=== PATIENT | female | born 1935 | race Caucasian/White ===

== ENCOUNTER 2023-02-11 20:59 | Observation (INO) | payer MEDICARE, SELFPAY ==
[2023-02-12] MEDS: SODIUM CHLORIDE 0.45 % 1,000 ML 75 ML IV (03:23)
--- NOTE | 2023-02-12 03:36 | PC.NURSE ---
Patient up to use restroom. 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 Patient was reoriented to place. Became angry when teletypewriter operator asked her to wait for assistance on getting out of bed. We were able to calm patient and assist with toileting and back to bed.
[2023-02-12 05:36] LABS: Basophils Absolute Auto 0.1 10^3/uL (0.0-0.1); Eosinophils Absolute Auto 0.2 10^3/uL (0.0-0.7); Hemoglobin 11.9 g/dL (12.0-16.0); Immature Granulocytes Abs Auto 0.14 10^3/uL (0.00-0.03); Immature Granulocytes Pct Auto 1.6 % (0.0-0.5); Lymphocytes Absolute Auto 1.9 10^3/uL (1.2-3.8); Lymphocytes Percent Auto 22.4 % (20.5-60.0); Mean Corpuscular Hemoglobin 30.6 pg (26.7-34.0); Mean Platelet Volume 8.3 fL (9.5-13.5); Monocytes Absolute Auto 1.1 10^3/uL (0.3-0.8); Neutrophils Absolute Auto 5.2 10^3/uL (1.4-6.5); Nucleated Red Blood Cells 0; Platelet Count 591 10^3/uL (150-450); Red Blood Count 3.89 10^6/uL (4.20-5.40); Red Cell Distribution Width 12.3 % (11.0-15.0); White Blood Count 8.6 10^3/uL (4.0-11.0)
[2023-02-12 05:57] VITALS: BP 150/63; PULSE 79; RESP 18; TEMP 36.6; O2SAT 95
[2023-02-12 06:00] VITALS: RESP 18
[2023-02-12 06:10] LABS: BUN Creatinine Ratio 13.1; Calcium 8.2 mg/dL (8.5-10.1); Carbon Dioxide 24.9 mmol/L (21.0-32.0); Chloride 100 mmol/L (98-107); Estimated GFR (African America >60 (>=60); Estimated GFR (Non-African Ame >60 (>=60); Glucose 100 mg/dL (74-106); Potassium 3.9 mmol/L (3.5-5.1); Sodium 135 mmol/L (136-145)
[2023-02-12] MEDS: LEVOTHYROXINE SODIUM 88 MCG TABLET PO (06:55)
[2023-02-12] MEDS: ASPIRIN 81 MG TAB.CHEW PO (08:34)
[2023-02-12] MEDS: AMLODIPINE BESYLATE 5 MG TABLET 10 MG PO (08:34)
[2023-02-12] MEDS: METFORMIN HCL 500 MG TAB.ER.24H PO ×2 (08:34→17:31)
[2023-02-12] MEDS: METOPROLOL SUCCINATE 50 MG TAB.ER.24H PO (08:35)
[2023-02-12] MEDS: CLOPIDOGREL BISULFATE 75 MG TABLET PO (08:35)
[2023-02-12] MEDS: LOSARTAN POTASSIUM 50 MG TABLET 100 MG PO (08:35)
[2023-02-12 08:59] VITALS: RESP 18
--- NOTE | 2023-02-12 09:47 | CM.NOTE ---
Rounds made with Dr. Arredondo, awaiting response from [facility] for pt to go skilled at discharge.
--- NOTE | 2023-02-12 09:55 | REH.PTDLY ---
Physical Therapy Daily Note PT Daily Note/Assess Start: 02/12/23 09:40 Freq: Status: Active Protocol: Document 02/12/23 09:40 [facility] (Rec: 02/12/23 09:54 [facility] Desktop) Physical Therapy Daily Note/Assessment Time In 09:25 Time Out 09:40 Pain Level 0 Pain Level 0 Subjective No complaints today. Feeling good. Pt hard of hearing. Therapeutic Exercise Minutes (minutes) 8 Therapeutic Exercise Units 1 Therapeutic Exercise Treatment Instructed in B LE exs with feet elevated in recliner 15x ea with AP, QS, heel slides, abd slides. SLR performed 10x Fredy. Seated LAQ 10x ea. Verbal cues and demo needed for exs, extra cues needed with QS for understanding. Therapeutic Activity Minutes (minutes) 6 Chair Transfer Ability Standby Assistance Therapeutic Activity Comments Pt performs transfers SBA/CGA from chair with pt having good safety awareness to push off from chair. Gait training with RW CGA 118 feet with pt ambulating at slow pace but able to perform safely when using an AD. Total Therapy Minutes 14 Total Physical Therapy Units 1 Daily Note Summary Pt very pleasant individual to work with, but seems a little 'off' today when conversing. Progressed gait distance with AD and reps with exs for improved mobility and strength for when pt returns home. Pt has no complaints during or post rx.
--- NOTE | 2023-02-12 12:03 | P.PN_ITS ---
Progress Note: Subjective Subjective Interval history: patient is a very pleasant 87-year-old female with past medical history of coronary artery disease, hyperlipidemia, hypothyroidism and past CVA who has had a gradual decline over the last several months. She has been having multiple falls while one causing a facial/chin injury. Her house is unsafe for her and she has to walk upstairs to the bedroom. She has also been experiencing some weakness along with her falls. Patient was found to have urinary tract infection in the Emergency Room and was given Rocephin. PT OT also seen patient today and requested long-term facility as patient was very weak on her feet and required full assistance. Patient denies any acute complaints Exam Narrative: Exam Narrative: General: Patient is alert, and not oriented to place or time thinks its 1978 Skin: no visible rashes, or ulcers, bruising to chin Head: atraumatic, acephalic Eyes: PERRLA, no nystagmus present, conjunctiva clear, no scleral icterus Ears: diminished gross auditory acuity Nose: symmetric, no discharge, no maxillary or frontal sinus tenderness Mouth/Throat: no erythema, exudate, or tonsillar enlargement, normal dentition Neck: no masses palpated, normal thyroid, no JVD or audible carotid bruits Heart: Normal rate and rhythm, no murmurs/rubs/gallops Lungs: no audible wheezes, crackles and normal breath sounds all lung mc Abdomen: Normal audible bowel sounds, no distension, No palpable masses, no organomegaly, no rebound/guarding/or rigidity Musculoskeletal: muscle atrophy noted, ROM is limited due to being in hospital bed, no swelling bilateral lower extremities Vascular: Normal carotid, radial, femoral, posterior tibial, and dorsalis pedis pulses Lymph: no supraclavicular, axillary, or anterior/posterior cervical adenopathy Neuro: CN II-X grossly intac Constitutional: Vital Signs, click to edit/add: Vital Signs - 24 hr 02/12/23 06:00 02/12/23 08:59 02/12/23 05:57 Temperature 97.9 F Pulse Rate 79 Respiratory Rate 18 18 18 Blood Pressure [Le ft Arm] 150/63 H Pulse Oximetry 95 Oxygen Delivery Me thod Room Air Progress Note: Objective Labs Labs: Short CBC 02/12/23 Range/Units 05:14 WBC 8.6 (4.0-11.0) 10^3/uL Hgb 11.9 L (12.0-16.0) g/dL Hct 35.0 L (36.0-48.0) % Plt Count 591 H (150-450) 10^3/uL [facility] 02/12/23 05:14 Sodium 135 L Potassium 3.9 Chloride 100 Carbon Dioxide 24.9 BUN 11.0 Creatinine 0.84 Glucose 100 Calcium 8.2 L Progress Note: A&P Assessment and Plan (1) Falls frequently: (2) Weakness generalized: (3) UTI (urinary tract infection): Plan #1 frequent falls/deconditioning/weakness-could be related to an acute urinary tract infection or progressive dementia/small vessel ischemia due to her past CVA. PT OT consult #2 acute urinary tract infection- treat with Rocephin IV #3 coronary artery disease continue statin #4 history of CVA continue aspirin Plavix and statin therapy #5 type 2 diabetes SSI, metformin #6 hypertension continue losartan and metoprolol and amlodipine #7 hypothyroidism-new home levothyroxine Patient is a full code Patient is observation status and is not expected to stay more than two-three days Fall Risk Details Current Medications: Current Medications Acetaminophen (Acetaminophen 325 Mg Tablet) 650 mg PO Q4H PRN PRN Reason: Pain Al Hydrox/Mg Hydrox/Simethicone (Maalox (Mag Hydrox/Aluminum Hyd/Simeth) 30 Ml Oral.Susp) 30 ml PO Q4H PRN PRN Reason: Indigestion Amlodipine Besylate (Amlodipine Besylate 5 Mg Tablet) 10 mg PO QD [facility] Last Admin: 02/12/23 08:34 Dose: 10 mg Aspirin (Aspirin 81 Mg Tab.Chew) 81 mg PO QD [facility] Last Admin: 02/12/23 08:34 Dose: 81 mg Atorvastatin Calcium (Atorvastatin Calcium 10 Mg Tablet) 10 mg PO BEDTIME [facility] Clopidogrel Bisulfate (Clopidogrel Bisulfate 75 Mg Tablet) 75 mg PO QD [facility] Last Admin: 02/12/23 08:35 Dose: 75 mg Ceftriaxone Sodium 2,000 mg/ (Sodium Chloride) 100 mls @ 200 mls/hr IV Q24H [facility] Sodium Chloride (Sodium Chloride 0.45% 1,000 Ml) 1,000 mls @ 75 mls/hr IV .[id number] [facility] Last Admin: 02/12/23 03:23 Dose: 75 mls/hr Levothyroxine Sodium (Levothyroxine Sodium 88 Mcg Tablet) 88 mcg PO ACB [facility] Last Admin: 02/12/23 06:55 Dose: 88 mcg Losartan Potassium (Losartan Potassium 50 Mg Tablet) 100 mg PO QD [facility] Last Admin: 02/12/23 08:35 Dose: 100 mg Metformin HCl (Metformin Hcl 500 Mg Tab.Er.24h) 500 mg PO BIDWM [facility] Last Admin: 02/12/23 08:34 Dose: 500 mg Metoprolol Succinate (Metoprolol Succinate 50 Mg Tab.Er.24h) 50 mg PO QD [facility] Last Admin: 02/12/23 08:35 Dose: 50 mg Omeprazole (Omeprazole 40 Mg Capsule.Dr) 40 mg PO ACB [facility] Last Admin: 02/12/23 06:55 Dose: Not Given Ondansetron HCl (Ondansetron Pf 4 Mg/2 Ml Vial) 4 mg IV Q6H PRN PRN Reason: Nausea Polyethylene Glycol (Polyethylene Glycol 3350 17 Gm Powder Packet) 17 gm PO QD PRN PRN Reason: Constipation Time Spent With Patient Time: Total time spent is greater than 50% in coordination of care (as documented) at patient's floor/unit and/or counseling patient: Time with patient: 25 - 35 minutes
[2023-02-12 14:05] VITALS: BP 108/71; PULSE 78; TEMP 36.7; O2SAT 97
[2023-02-12 14:21] VITALS: RESP 18
--- NOTE | 2023-02-12 15:36 | SWNOTE1 ---
Updates sent to [facility]. Karmen at [facility] submitted them to insurance.
[2023-02-12] MEDS: CEFTRIAXONE 2,000 MG in 0.9 % SODIUM CHLORIDE 100 ML 200 MG IV (17:32)
[2023-02-12 21:36] VITALS: BP 121/70; PULSE 77; RESP 18; TEMP 36.8; O2SAT 93
[2023-02-13] MEDS: ATORVASTATIN CALCIUM 10 MG TABLET PO (02:21)
[2023-02-13 04:58] VITALS: BP 145/78; PULSE 84; RESP 18; TEMP 36.8; O2SAT 94
[2023-02-13] MEDS: LEVOTHYROXINE SODIUM 88 MCG TABLET PO (05:31)
[2023-02-13 05:53] LABS: Basophils Absolute Auto 0.1 10^3/uL (0.0-0.1); Basophils Percent Auto 0.9 % (0.2-2.0); Eosinophils Absolute Auto 0.2 10^3/uL (0.0-0.7); Eosinophils Percent Auto 2.4 % (0.9-7.0); Hematocrit 35.2 % (36.0-48.0); Hemoglobin 11.9 g/dL (12.0-16.0); Immature Granulocytes Abs Auto 0.11 10^3/uL (0.00-0.03); Immature Granulocytes Pct Auto 1.6 % (0.0-0.5); Lymphocytes Absolute Auto 1.9 10^3/uL (1.2-3.8); Lymphocytes Percent Auto 28.7 % (20.5-60.0); Mean Corpuscular HGB Conc 33.8 g/dL (29.9-35.2); Mean Corpuscular Hemoglobin 30.6 pg (26.7-34.0); Mean Corpuscular Volume 90.5 fL (81.0-99.0); Mean Platelet Volume 8.5 fL (9.5-13.5); Monocytes Absolute Auto 0.8 10^3/uL (0.3-0.8); Monocytes Percent Auto 11.6 % (1.7-12.0); Neutrophils Absolute Auto 3.7 10^3/uL (1.4-6.5); Neutrophils Percent Auto 54.8 % (43.0-75.0); Nucleated Red Blood Cells 0; Platelet Count 647 10^3/uL (150-450); Red Blood Count 3.89 10^6/uL (4.20-5.40); Red Cell Distribution Width 12.5 % (11.0-15.0); White Blood Count 6.7 10^3/uL (4.0-11.0)
[2023-02-13 07:24] LABS: Alanine Aminotransferase 16 U/L (14-59); Albumin Globulin Ratio 0.7; Albumin Level 2.5 g/dL (3.4-5.0); Alkaline Phosphatase 62 U/L (46-116); Anion Gap 13.6; Aspartate Amino Transferase 16 U/L (15-37); BUN Creatinine Ratio 7.2; Bilirubin Total 0.3 mg/dL (0.2-1.0); Calcium 8.5 mg/dL (8.5-10.1); Carbon Dioxide 25.3 mmol/L (21.0-32.0); Chloride 101 mmol/L (98-107); Estimated GFR (African America >60 (>=60); Estimated GFR (Non-African Ame >60 (>=60); Globulin 3.7 g/dL; Glucose 103 mg/dL (74-106); Potassium 3.9 mmol/L (3.5-5.1); Sodium 136 mmol/L (136-145); Total Protein 6.2 g/dL (6.4-8.2)
[2023-02-13] MEDS: METFORMIN HCL 500 MG TAB.ER.24H PO (09:13)
[2023-02-13] MEDS: ASPIRIN 81 MG TAB.CHEW PO (09:14)
[2023-02-13] MEDS: CLOPIDOGREL BISULFATE 75 MG TABLET PO (09:15)
[2023-02-13] MEDS: AMLODIPINE BESYLATE 5 MG TABLET 10 MG PO (09:15)
[2023-02-13] MEDS: METOPROLOL SUCCINATE 50 MG TAB.ER.24H PO (09:16)
[2023-02-13] MEDS: LOSARTAN POTASSIUM 50 MG TABLET 100 MG PO (09:16)
--- NOTE | 2023-02-13 11:07 | PT.DAILY ---
Physical Therapy Daily Note PT Daily Note/Assess Start: 02/12/23 09:40 Freq: Status: Active Protocol: Document 02/13/23 11:01 [facility] (Rec: 02/13/23 11:07 [facility] Desktop) Physical Therapy Daily Note/Assessment Time In/Time Out Time In 10:25 Time Out 10:45 Pain In Pain N/A Pain Out Pain N/A Subjective Subjective Pt sitting in BS chair upon arrival. Reports she is tired this morning but knows she needs to get up and move. Therapeutic Exercise Time Therapeutic Exercise Minutes (minutes) 5 Therapeutic Exercise Units 0 Therapeutic Exercise Treatment Therapeutic Exercise Treatment Seated ex complete in BS chair while sitting on edge without back supported. Therapeutic Activity Time Therapeutic Activity Minutes (minutes) 13 Therapeutic Activity Units 1 Therapeutic Activity Treatment Chair Transfer Ability Standby Assistance Therapeutic Activity Comments Pt sit>stand SBA. Amb with RW 100'x3 with slow edwige and standing rest breaks taken. Total Physical Therapy Time Total Therapy Minutes 18 Total Physical Therapy Units 1 Summary Daily Note Summary Improved gait endurance but does requires rest breaks and increased time due to slow edwige.
--- NOTE | 2023-02-13 12:00 | CM.NOTE ---
2nd Notice of Medicare Outpatient Observation notice discussed with pt, denies questions.
--- NOTE | 2023-02-13 12:02 | SWNOTE1 ---
WALT received call from pt's insurance and they are requesting a peer to peer for pt to go to snf. WALT wrote down the information and it was sent to Dr. Arredondo. Peer to peer must be completed by 2:40 pm today. WALT also received call from [facility] letting WALT know about peer to peer.
--- NOTE | 2023-02-13 14:04 | SWNOTE1 ---
SW spoke with doctor and peer to peer was completed. Insurance said they have 24 hours to determine their decision. SW notified Alycia at [facility] and requested SW be notified either way over the weekend. SW left cell phone number with [facility]. SW to update family and nursing. SW also to leave packet on floor in case of approval. SW completed HENS as well.
--- NOTE | 2023-02-13 14:32 | PM.DS1 ---
DS: Providers Provider Date of admission: 02/11/23 20:59 Primary care physician: LANRE STANLEY DS: Diagnosis Discharge Diagnosis (1) Falls frequently: (2) Weakness generalized: (3) UTI (urinary tract infection): DS: Summary Hospital Course Hospital Course: #1 frequent falls/deconditioning/weakness-could be related to an acute urinary tract infection or progressive dementia/small vessel ischemia due to her past CVA. PT OT consult, did not qualify for skilled at this time after doing a peer to peer with insurance. She will go home with home PT/OT #2 acute urinary tract infection-? treat with Rocephin IV, outpatient cipro PO BID x 7 days #3 coronary artery disease continue? statin #4 history of CVA continue aspirin Plavix and statin therapy #5 type 2 diabetes SSI, metformin #6 hypertension continue losartan and metoprolol and amlodipine #7 hypothyroidism- home levothyroxine Status at Discharge Functional status at discharge: uses cane/walker Time Spent with Patient Time attestation: Total time spent providing and/or coordinating discharge services: Exam Narrative: Exam Narrative: General: Patient is alert, and not oriented to place or time thinks its 1978 Skin: no visible rashes, or ulcers, bruising to chin Head: atraumatic, acephalic Eyes: PERRLA, no nystagmus present, conjunctiva clear, no scleral icterus Ears: diminished gross auditory acuity Nose: symmetric, no discharge, no maxillary or frontal sinus tenderness Mouth/Throat: no erythema, exudate, or tonsillar enlargement, normal dentition Neck: no masses palpated, normal thyroid, no JVD or audible carotid bruits Heart: Normal rate and rhythm, no murmurs/rubs/gallops Lungs: no audible wheezes, crackles and normal breath sounds all lung mc Abdomen: Normal audible bowel sounds, no distension, No palpable masses, no organomegaly, no rebound/guarding/or rigidity Musculoskeletal: muscle atrophy noted, ROM is limited due to being in hospital bed, no swelling bilateral lower extremities Vascular: Normal carotid, radial, femoral, posterior tibial, and dorsalis pedis pulses Lymph: no supraclavicular, axillary, or anterior/posterior cervical adenopathy Neuro: CN II-X grossly intact Constitutional: Vital Signs, click to edit/add: Vital Signs - 24 hr 02/12/23 21:36 02/13/23 04:58 Temperature 98.2 F 98.2 F Pulse Rate 77 84 Respiratory Rate 18 18 Blood Pressure [Le ft Arm] 121/70 H 145/78 H Pulse Oximetry 93 L 94 L Oxygen Delivery Me thod Room Air Room Air DS: Data Data Completed and Pending Labs on day of discharge: Labs from last 24 hours 02/13/23 04:43 WBC 6.7 RBC 3.89 L Hgb 11.9 L Hct 35.2 L MCV 90.5 MCH 30.6 MCHC 33.8 RDW 12.5 Plt Count 647 H MPV 8.5 L Neut % (Auto) 54.8 Lymph % (Auto) 28.7 [place] % (Auto) 11.6 Eos % (Auto) 2.4 Baso % (Auto) 0.9 Neut # (Auto) 3.7 Lymph # (Auto) 1.9 [place] # (Auto) 0.8 Eos # (Auto) 0.2 Baso # (Auto) 0.1 Nucleated RBCs 0 Sodium 136 Potassium 3.9 Chloride 101 Carbon Dioxide 25.3 Anion Gap 13.6 BUN 6.0 L Creatinine 0.83 Est GFR ( Amer) >60 Est GFR (Non-Af Amer) >60 BUN/Creatinine Ratio 7.2 Glucose 103 Calcium 8.5 Total Bilirubin 0.3 AST 16 ALT 16 Total Protein 6.2 L Albumin 2.5 L Globulin 3.7 Albumin/Globulin Ratio 0.7 Discharge Plan Discharge Disposition: Home Health Service Discharge Medications: New ciprofloxacin HCl 500 mg tablet 500 mg PO BID 7 Days Qty: 14 0RF Continued amlodipine 10 mg tablet 10 mg PO .daily atorvastatin 10 mg tablet 10 mg PO .every evening aspirin 81 mg tablet,chewable 81 mg PO QDAY losartan 100 mg tablet 100 mg PO .everyday at bedtime metformin 500 mg tablet extended release 24 hr 500 mg PO BID metoprolol succinate 50 mg tablet extended release 24 hr 50 mg PO QDAY Activity: ambulate only with your walker Activity Detail: home health with home PT/OT Diet: advance to your usual diet Forms: Portal Instructions
[2023-02-13 14:35] VITALS: BP 159/73; PULSE 90; RESP 18; TEMP 36.3; O2SAT 93
--- NOTE | 2023-02-13 14:43 | SWNOTE1 ---
WALT spoke with doctor and received call from insurance that pt is denied for skilled care and does not qualify. Pt is medically stable for discharge. WALT called and spoke with pt's son, Travon. Travon would like set up and would like to use [facility]. WALT sent referral. Travon will get ahold of one of his sisters to pick pt up today as he is working. WALT asked permission to call Araceli as well. WALT called and spoke with Araceli, daughter, and she voiced understanding. WALT updated nursing.
--- NOTE | 2023-02-13 15:40 | SWNOTE1 ---
WALT called and spoke with Aletha at [facility] and they have received referral and do not see any issues. Start of care will not be until early next week, family is aware. Pt is discharging home with [facility]. DC orders were sent to [facility].
== END 2023-02-13 15:33 | disposition home health service (06) ==
PROVIDERS: Admitting Provider Family Medicine; PCP Family Medicine; Visit Provider Internal Medicine
DX: N39.0 Urinary tract infection, site not specified (principal); I25.10 Atherosclerotic heart disease of native coronary artery without angina pectoris; E11.9 Type 2 diabetes mellitus without complications; I10 Essential (primary) hypertension; E03.9 Hypothyroidism, unspecified; E78.5 Hyperlipidemia, unspecified; R53.1 Weakness; Z79.890 Hormone replacement therapy; R29.6 Repeated falls; Z86.73 Personal history of transient ischemic attack (TIA), and cerebral infarction without residual deficits; Z79.84 Long term (current) use of oral hypoglycemic drugs; Z79.82 Long term (current) use of aspirin; Z79.02 Long term (current) use of antithrombotics/antiplatelets
CPT/HCPCS: 36415; 71045; 80048; 80053; 81003; 81015; 84484; 85025; 87040; 87086; 87635; 87811; 93005; 96365; 96366; 96376; 97110; 97161; 97165; 97530; 97535; 99285; G0378; Q3014; U0003

== ENCOUNTER 2023-02-26 11:28 | Observation (INO) | payer MEDICARE, SELFPAY ==
[2023-02-26] VITALS (8 sets, daily range): BP systolic 99–186; BP diastolic 63–101; PULSE 66–92; RESP 14–27; TEMP 36.4–36.7; O2SAT 93–99; BMI 19.5; BMI 20.2
--- NOTE | 2023-02-26 11:33 | ED_ITS ---
HPI - General Adult General Chief complaint: Weakness Stated complaint: GENERAL WEAKNESS Time Seen by Provider: 02/26/23 11:33 History of Present Illness HPI narrative: Patient presents to emergency department via EMS with a complaint of nausea and vomiting. Patient states she feels very weak has nausea and abdominal pain. She was recently hospitalized and discharged on Cipro for a urinary tract infection. That was 2 weeks ago the Cipro was prescribed for 7 days and the patient still has one and the pill box. She denies any diarrhea, constipation. Son who lives with him patient states she has not improved much since she left the hospital. She denies any trauma. She denies any chest pain, shortness of breath. She denies any fever, or chills, or cough.Patient has had frequent falls in the last month. She was seen and evaluated by PTOT during the last admission. Family ended up taking her home however does state the patient has not improved in the minimal and although she is having outpatient rehab with home health and that has not helped. Related Data Home Medications Medication Instructions Recorded Confirmed amlodipine 10 mg tablet 10 mg PO .daily 02/12/23 02/26/23 aspirin 81 mg chewable tablet 81 mg PO QDAY 02/12/23 02/26/23 atorvastatin 10 mg tablet 10 mg PO .every evening 02/12/23 02/26/23 losartan 100 mg tablet 100 mg PO .everyday at bedtime 02/12/23 02/12/23 metformin 500 mg tablet,extended 500 mg PO BID 02/12/23 02/26/23 release 24 hr metoprolol succinate 50 mg 50 mg PO QDAY 02/12/23 02/26/23 tablet,extended release 24 hr donepezil 5 mg tablet 5 mg PO DAILY 02/26/23 02/26/23 magnesium oxide 400 mg (241.3 mg 400 mg PO DAILY 02/26/23 02/26/23 magnesium) tablet Previous Rx's Medication Instructions Recorded ciprofloxacin HCl 500 mg tablet 500 mg PO BID 7 days #14 tabs 02/13/23 Allergies Allergy/AdvReac Type Severity Reaction Status Date / Time Sulfa (Sulfonamide Allergy Verified 02/11/23 19:37 Antibiotics) Review of Systems ROS Status of ROS 10 or more systems reviewed and unremarkable except as noted in history and below [facility] Medical History (Updated 02/26/23 @ 14:41 by Doris Nicolas MD) Social History Smoking status: Former smoker Exam Narrative Exam Narrative: Nurses notes and vital signs reviewed and patient is not hypoxic. General: Nontoxic, Well-appearing and in no apparent distress. Skin: Warm, dry, no pallor noted. No Rash Head: Normocephalic, atraumatic. Neck: Supple, non-tender. Eye: Pupils are equal, round and EOMI. No scleral icterus. Ears, Nose, Mouth, and Throat: TM clear, no posterior oropharynx erythema or nasal mucosal hypertrophy, uvula is mid-line Oral mucosa is dry Cardiovascular: Regular Rate and Rhythm without murmur, gallop or rub. Respiratory: No accessory muscle use or respiratory distress. Lungs are clear to auscultation, no wheezing, rales or rhonchi Chest Wall: no tenderness Back: No midline thoracic or lumbar vertebral tenderness. No CVA tenderness Musculoskeletal: normal ROM, no calf or popliteal tenderness, no lower extremity edema/swelling GI: Abdomen is soft, non-distended. Normal bowel sounds. No masses appreciated. No tenderness to palpation. No rebound, guarding, or rigidity noted. Neurological: A&O x4. No cranial nerve dysfunction observed. No truncal ataxia. Moves all extremities. Sensation intact. Psychiatric: Cooperative and interactive. Normal mood and affect. Constitutional Vital Signs - 24 hr 02/26/23 11:36 02/26/23 11:58 02/26/23 11:35 Temperature 98.1 F Pulse Rate 90 Pulse Rate [Monitor] 90 Respiratory Rate 14 20 Blood Pressure Blood Pressure [Right Arm] 149/101 H Pulse Oximetry 99 97 96 Oxygen Delivery Method Room Air Room Air 02/26/23 11:36 02/26/23 11:36 02/26/23 13:33 Temperature Pulse Rate 88 92 H 79 Pulse Rate [Monitor] Respiratory Rate 24 27 H 21 Blood Pressure 149/101 H 99/75 Blood Pressure [Right Arm] Pulse Oximetry 95 93 L Oxygen Delivery Method 02/26/23 14:01 02/26/23 14:01 Temperature Pulse Rate 68 70 Pulse Rate [Monitor] Respiratory Rate 15 14 Blood Pressure 155/68 H 155/68 H Blood Pressure [Right Arm] Pulse Oximetry 93 L 93 L Oxygen Delivery Method Course Vital Signs Vital signs: Vital Signs Pulse Rate 90 02/26/23 11:35 Respiratory Rate 20 02/26/23 11:35 Pulse Oximetry 96 02/26/23 11:35 Temperature 98.1 F 02/26/23 11:36 Pulse Rate 70 02/26/23 14:01 Respiratory Rate 14 02/26/23 14:01 Blood Pressure 155/68 H 02/26/23 14:01 Pulse Oximetry 93 L 02/26/23 14:01 Oxygen Delivery Method Room Air 02/26/23 11:58 Medical Decision Making MDM Narrative Medical decision making narrative: Patient was given IV fluids. 2 g of magnesium were ordered. Patient continues to have urinary frequency. All results were discussed with patient and family. Family states that the patient is not able to care for herself she is weak she continues to have frequent falls. The patient was discussed with Sylvia from [employer] who advised at this point it became obs the patient to have them. Patient was discussed with Dr. reinier almazan who has accepted the patient. Medical Records Medical records reviewed: Yes I reviewed the patient's medical records Lab Data Lab results reviewed: Yes I reviewed the patient's lab results Labs: Lab Results 02/26/23 Range/Units 11:43 WBC 5.8 (4.0-11.0) 10^3/uL RBC 4.50 (4.20-5.40) 10^6/uL Hgb 14.0 (12.0-16.0) g/dL Hct 40.8 (36.0-48.0) % MCV 90.7 (81.0-99.0) fL MCH 31.1 (26.7-34.0) pg MCHC 34.3 (29.9-35.2) g/dL RDW 13.2 (11.0-15.0) % Plt Count 782 H (150-450) 10^3/uL MPV 8.1 L (9.5-13.5) fL Neut % (Auto) 59.4 (43.0-75.0) % Lymph % (Auto) 24.9 (20.5-60.0) % [place] % (Auto) 12.1 H (1.7-12.0) % Eos % (Auto) 1.9 (0.9-7.0) % Baso % (Auto) 1.4 (0.2-2.0) % Neut # (Auto) 3.4 (1.4-6.5) 10^3/uL Lymph # (Auto) 1.4 (1.2-3.8) 10^3/uL [place] # (Auto) 0.7 (0.3-0.8) 10^3/uL Eos # (Auto) 0.1 (0.0-0.7) 10^3/uL Baso # (Auto) 0.1 (0.0-0.1) 10^3/uL Abs Immat Gran (auto) 0.02 (0.00-0.03) 10^3/uL Imm/Tot Granulo (auto) 0.3 (0.0-0.5) % Sodium 133 L (136-145) mmol/L Potassium 4.2 (3.5-5.1) mmol/L Chloride 98 (98-107) mmol/L Carbon Dioxide 25.2 (21.0-32.0) mmol/L Anion Gap 14.0 BUN 16.0 (7.0-18.0) mg/dL Creatinine 0.86 (0.55-1.02) mg/dL Est GFR ( Amer) >60 (>=60) Est GFR (Non-Af Amer) >60 (>=60) BUN/Creatinine Ratio 18.6 Glucose 110 H (74-106) mg/dL Lactate 2.1 H (0.4-2.0) mmol/L Calcium 9.1 (8.5-10.1) mg/dL Magnesium 1.6 L (1.8-2.4) mg/dL Total Bilirubin 1.1 H (0.2-1.0) mg/dL AST 23 (15-37) U/L ALT 23 (14-59) U/L Alkaline Phosphatase 66 (46-116) U/L Total Creatine Kinase 60 (26-192) U/L CK-MB (CK-2) 0.90 (<=3.60) ng/mL Myoglobin 38 (9-82) ng/mL Troponin I High Sens 8.8 (4.0-51.3) pg/mL NT-Pro-B Natriuret Pep 160.0 (<=1800.0) pg/mL Total Protein 7.5 (6.4-8.2) g/dL Albumin 3.6 (3.4-5.0) g/dL Globulin 3.9 g/dL Albumin/Globulin Ratio 0.9 Lipase 85.0 (73.0-393.0) U/L Urine Color Lt. yellow (YELLOW) Urine Clarity Clear (CLEAR) Urine pH 5.5 (5.0-9.0) Ur Specific [place] 1.010 (1.005-1.025) Urine Protein Negative (NEG/TRACE) mg/dL Urine Glucose (UA) Negative (NEGATIVE) mg/dL Urine Ketones Negative (NEGATIVE) mg/dL Urine Occult Blood Negative (NEGATIVE) Urine Nitrite Negative (NEGATIVE) Urine Bilirubin Negative (NEGATIVE) Urine Urobilinogen 0.2 (0.2-1.0) EU/dL Ur Leukocyte Esterase Negative (NEGATIVE) Discharge Plan Discharge Chief Complaint: Weakness Clinical Impression: Elevated lactic acid level, Hypomagnesemia Patient Disposition: Admitted as Observation Time of Disposition Decision: 14:41 Condition: Good
--- NOTE | 2023-02-26 11:42 | ECG_ITS ---
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
--- NOTE | 2023-02-26 11:42 | CT_ITS ---
The [address] [address] Patient Name: PRIYA MOON MRN: [id number] date: 1935 Sex: F Assigned Patient Location: ER Current Patient Location: ER Accession/Order Number: [id number] Exam Date: 02/26/2023 13:00 Report Date: 02/26/2023 13:47 At the request of: TRI HERNÁNDEZ Procedure: CT abdomen pelvis w con EXAM: CT abdomen pelvis w con HISTORY: abd pain, n/v COMPARISON: CT abdomen and pelvis 09/06/2022. TECHNIQUE: Following the intravenous injection of contrast, axial soft tissue windows of the abdomen and pelvis were performed with coronal and sagittal reformats. CT dose reduction technique was used including Automated Exposure Control. Findings: Coronary artery calcifications. Small hiatal hernia. Minimal bilateral lower lung atelectasis. ABDOMEN: The liver, gallbladder, pancreas, and adrenal glands are unremarkable. Redemonstrated is an atrophic cyst seen. Minimal nonspecific bilateral perinephric fat stranding. Bilateral renal low-attenuation lesions, too small to characterize. No renal stones or collecting system dilatation. Redemonstrated are small bilateral extrarenal pelvises. The bilateral ureters are nondilated. Evaluation of the bowel is limited given the absence of oral contrast. No bowel obstruction. The appendix is not definitely identified. The aorta is normal caliber. Moderate to severe atherosclerotic disease. No enlarged abdominal lymph nodes or free abdominal fluid. Pelvis: Unremarkable bladder. The uterus is present and unremarkable within the limits of CT. No enlarged pelvic lymph nodes or free pelvic fluid. No aggressive sclerotic or lytic osseous lesions. Old L1 inferior endplate compression deformity. Mild dextroconvex scoliosis of the lumbar spine. Stable grade 1 anterolisthesis of L4 on L5. Regions of moderate to severe multilevel degenerative spondylosis. IMPRESSION: 1. No acute abdominal or pelvic abnormality. 2. Other nonemergent findings, as described above. Electronically authenticated by: KRISTY LEE Date: 02/26/2023 13:47
--- NOTE | 2023-02-26 11:42 | XR_ITS ---
The [address] [address] Patient Name: PRIYA MOON MRN: [id number] date: 1935 Sex: F Assigned Patient Location: ER Current Patient Location: ER Accession/Order Number: [id number] Exam Date: 02/26/2023 13:00 Report Date: 02/26/2023 14:11 At the request of: TRI HERNÁNDEZ Procedure: XR chest 1V EXAM: XR chest 1V at 1305 hours HISTORY: weakness COMPARISON: 02/10/2023 TECHNIQUE: AP upright portable chest x-ray FINDINGS: The heart is not enlarged and the vasculature is not distended. There is been interval clearing of the lung bases. No acute infiltrate, effusion or pneumothorax is identified. The osseous structures are grossly intact IMPRESSION: No acute infiltrate or evidence of cardiac decompensation. Electronically authenticated by: NESSA GONSALVES Date: 02/26/2023 14:11
[2023-02-26 12:10] LABS: Basophils Absolute Auto 0.1 10^3/uL (0.0-0.1); Basophils Percent Auto 1.4 % (0.2-2.0); Eosinophils Absolute Auto 0.1 10^3/uL (0.0-0.7); Eosinophils Percent Auto 1.9 % (0.9-7.0); Hematocrit 40.8 % (36.0-48.0); Immature Granulocytes Abs Auto 0.02 10^3/uL (0.00-0.03); Immature Granulocytes Pct Auto 0.3 % (0.0-0.5); Lymphocytes Absolute Auto 1.4 10^3/uL (1.2-3.8); Lymphocytes Percent Auto 24.9 % (20.5-60.0); Mean Corpuscular HGB Conc 34.3 g/dL (29.9-35.2); Mean Corpuscular Hemoglobin 31.1 pg (26.7-34.0); Mean Corpuscular Volume 90.7 fL (81.0-99.0); Mean Platelet Volume 8.1 fL (9.5-13.5); Monocytes Absolute Auto 0.7 10^3/uL (0.3-0.8); Monocytes Percent Auto 12.1 % (1.7-12.0); Neutrophils Absolute Auto 3.4 10^3/uL (1.4-6.5); Neutrophils Percent Auto 59.4 % (43.0-75.0); Platelet Count 782 10^3/uL (150-450); Red Cell Distribution Width 13.2 % (11.0-15.0); White Blood Count 5.8 10^3/uL (4.0-11.0)
[2023-02-26] MEDS: 0.9 % SODIUM CHLORIDE 1,000 ML 999 ML IV (12:12)
[2023-02-26] MEDS: ONDANSETRON PF 4 MG/2 ML VIAL IV (12:13)
[2023-02-26 12:31] LABS: Lactate/Lactic Acid 2.1 mmol/L (0.4-2.0)
[2023-02-26 12:32] LABS: Bilirubin Urine NEGATIVE (NEGATIVE); Blood Urine NEGATIVE (NEGATIVE); Clarity Urine CLEAR (CLEAR); Color Urine LT. YELLOW (YELLOW); Glucose Urine UA NEGATIVE (NEGATIVE); Ketones Urine NEGATIVE (NEGATIVE); Leukocyte Esterase Urine NEGATIVE (NEGATIVE); Nitrite Urine NEGATIVE (NEGATIVE); Protein Urine NEGATIVE (NEG/TRACE); Urobilinogen Urine 0.2 EU/dL (0.2-1.0); pH Urine 5.5 (5.0-9.0)
[2023-02-26 12:33] LABS: Urine Microscopic Indicated NO
[2023-02-26 12:39] LABS: Alanine Aminotransferase 23 U/L (14-59); Albumin Globulin Ratio 0.9; Albumin Level 3.6 g/dL (3.4-5.0); Alkaline Phosphatase 66 U/L (46-116); Aspartate Amino Transferase 23 U/L (15-37); BUN Creatinine Ratio 18.6; Bilirubin Total 1.1 mg/dL (0.2-1.0); Calcium 9.1 mg/dL (8.5-10.1); Carbon Dioxide 25.2 mmol/L (21.0-32.0); Chloride 98 mmol/L (98-107); Estimated GFR (African America >60 (>=60); Estimated GFR (Non-African Ame >60 (>=60); Globulin 3.9 g/dL; Glucose 110 mg/dL (74-106); Potassium 4.2 mmol/L (3.5-5.1); Sodium 133 mmol/L (136-145); Total Protein 7.5 g/dL (6.4-8.2)
[2023-02-26 12:43] LABS: Creatine Kinase 60 U/L (26-192); Magnesium 1.6 mg/dL (1.8-2.4); Myoglobin 38 ng/mL (9-82); Troponin I High Sensitivity 8.8 pg/mL (4.0-51.3)
[2023-02-26] MEDS: MAGNESIUM SULFATE 2 GM in 0.9 % SODIUM CHLORIDE 100 ML IV (14:00)
--- NOTE | 2023-02-26 14:21 | SWNOTE1 ---
WALT spoke with ER physician, pt in for weakness and falls. Physician inquiring about SNF. Pt was here 2 weeks ago and we attempted to get her to SNF, but her insurance denied. Hospitalist completed peer to peer and insurance still denied. WALT let ER physician know and pt does want SNF, pt would need to come to floor and we can try again. Unsure of pt has a diagnosis to be admitted or not. It is all determined by her insurance. Pt is at home with services. The only other option for skilled would be private pay.
--- NOTE | 2023-02-26 15:48 | SWNOTE1 ---
SW stopped in to speak with pt. Pt was admitted to floor. Pt is at home with her son. Pt denies having any falls at home and stated she came in because she was having trouble breathing, Pt resting in bed, comfortable, no oxygen. Pt stated she uses her cane at home, has a walker, but uses cane. SW asked about HH coming in and she stated they have not been in yet. Pt was aware that she was at [facility], knew the year, thought it was Thursday and that Deidre was President. Pt was able to tell SW all her kids names. SW to check on HH company and pt gave permission for SW to call her son. SW called and left message for pt's son. SW spoke with nursing and pt is already getting up on her own and using the restroom.
[2023-02-26 16:41] LABS: Glucometer 116 mg/dL (74-106)
[2023-02-26 21:10] LABS: Glucometer 176 mg/dL (74-106)
[2023-02-26] MEDS: INSULIN ASPART 300 UNIT/3 ML PEN SUBQ (22:57)
[2023-02-26] MEDS: ENOXAPARIN SODIUM 40 MG/0.4 ML SYRINGE SUBQ (22:57)
[2023-02-27 06:00] VITALS: PULSE 66; RESP 18; TEMP 36.4; O2SAT 93
[2023-02-27 07:12] LABS: Basophils Absolute Auto 0.1 10^3/uL (0.0-0.1); Basophils Percent Auto 1.1 % (0.2-2.0); Eosinophils Absolute Auto 0.2 10^3/uL (0.0-0.7); Eosinophils Percent Auto 3.1 % (0.9-7.0); Hematocrit 37.8 % (36.0-48.0); Hemoglobin 12.5 g/dL (12.0-16.0); Immature Granulocytes Abs Auto 0.02 10^3/uL (0.00-0.03); Immature Granulocytes Pct Auto 0.3 % (0.0-0.5); Lymphocytes Absolute Auto 1.8 10^3/uL (1.2-3.8); Lymphocytes Percent Auto 28.5 % (20.5-60.0); Mean Corpuscular HGB Conc 33.1 g/dL (29.9-35.2); Mean Corpuscular Hemoglobin 30.7 pg (26.7-34.0); Mean Corpuscular Volume 92.9 fL (81.0-99.0); Mean Platelet Volume 8.1 fL (9.5-13.5); Monocytes Absolute Auto 0.9 10^3/uL (0.3-0.8); Neutrophils Absolute Auto 3.3 10^3/uL (1.4-6.5); Platelet Count 686 10^3/uL (150-450); Red Blood Count 4.07 10^6/uL (4.20-5.40); Red Cell Distribution Width 13.5 % (11.0-15.0); White Blood Count 6.2 10^3/uL (4.0-11.0)
[2023-02-27 07:27] LABS: Alanine Aminotransferase 21 U/L (14-59); Albumin Globulin Ratio 0.9; Albumin Level 3.1 g/dL (3.4-5.0); Alkaline Phosphatase 62 U/L (46-116); Anion Gap 11.3; Aspartate Amino Transferase 16 U/L (15-37); BUN Creatinine Ratio 18.6; Bilirubin Total 0.8 mg/dL (0.2-1.0); Calcium 8.7 mg/dL (8.5-10.1); Chloride 101 mmol/L (98-107); Estimated GFR (African America >60 (>=60); Estimated GFR (Non-African Ame >60 (>=60); Globulin 3.4 g/dL; Glucose 97 mg/dL (74-106); Potassium 4.3 mmol/L (3.5-5.1); Sodium 136 mmol/L (136-145); Total Protein 6.5 g/dL (6.4-8.2)
[2023-02-27 07:34] LABS: Magnesium 1.9 mg/dL (1.8-2.4)
[2023-02-27] MEDS: ASPIRIN 81 MG TAB.CHEW PO (08:22)
[2023-02-27] MEDS: AMLODIPINE BESYLATE 5 MG TABLET 10 MG PO (08:22)
[2023-02-27] MEDS: METOPROLOL SUCCINATE 50 MG TAB.ER.24H PO (08:23)
[2023-02-27] MEDS: MAGNESIUM OXIDE 400 MG TABLET PO (08:23)
[2023-02-27] MEDS: DONEPEZIL HCL 5 MG TABLET PO (08:23)
--- NOTE | 2023-02-27 08:30 | SWNOTE1 ---
WALT spoke with pt's son this morning over the phone. WALT and son, Travon, spoke about dc plans. Travon stated [facility] came in on Thursday to assess pt and then Thursday to do physical therapy. Travon is meeting with a attorney lawyer next Thursday to switch properties and talk about what needs to be done to get pt to a nursing facility extermination inspector. Travon did acknowledge pt is getting harder to care for and that he works long hours. WALT did let him know that the doctor may come in today and discharge pt. Pt is ambulating well for nursing at this time, will see what PT/OT recommend and go from there.
[2023-02-27 11:50] LABS: Glucometer 169 mg/dL (74-106)
[2023-02-27] MEDS: INSULIN ASPART 300 UNIT/3 ML PEN SUBQ (11:51)
--- NOTE | 2023-02-27 12:12 | P.HP_ITS ---
H&P: HPI History of Present Illness Chief complaint: GENERAL WEAKNESS Narrative: HPI and Hospital Course: 87 y o female with recent diagnosis of UTI was brought in by her family for nausea, abdominal discomfort and generalized weakness. She has poor PO intake and it seems like she did not finish her abx prescribed for UTI. She was admitted overnight for observation for IV hydration, PT, OT eval. Her w/u in ED was negative for UTI or PNA. She had normal CXR and CT abd/pevis was unremarkable for any acute pathology. Patient was seen this am and felt better. She ambulate in [address] using a walker w/o unsteadiness, or poor balance. She used a walker like she does at baseline. She did not have GI complaints to me and was feeling better today. Admission Diagnosis Generalized weakness Dehydration HTN HLD Dementia T2 DM Lacic acidosis Discharge diagnosis as above Discharge status stable Review of Systems ROS Status of ROS 10 or more systems reviewed and unremarkable except as noted in h istory and below [facility] History (Updated 02/27/23 @ 12:21 by Shaikh Shama MD) Social History Smoking status: Former smoker Gender Identity: female Meds Home Medications and Allergies Home Medications Medication Instructions Recorded Confirmed Type amlodipine 10 mg tablet 10 mg PO .daily 02/12/23 02/26/23 History aspirin 81 mg chewable tablet 81 mg PO QDAY 02/12/23 02/26/23 History atorvastatin 10 mg tablet 10 mg PO .every evening 02/12/23 02/26/23 History losartan 100 mg tablet 100 mg PO .everyday at bedtime 02/12/23 02/26/23 History metformin 500 mg tablet,extended 500 mg PO BID 02/12/23 02/26/23 History release 24 hr metoprolol succinate 50 mg 50 mg PO QDAY 02/12/23 02/26/23 History tablet,extended release 24 hr donepezil 5 mg tablet 5 mg PO DAILY 02/26/23 02/26/23 History magnesium oxide 400 mg (241.3 mg 400 mg PO DAILY 02/26/23 02/26/23 History magnesium) tablet Allergies Allergy/AdvReac Type Severity Reaction Status Date / Time Sulfa (Sulfonamide Allergy Verified 02/11/23 19:37 Antibiotics) Exam Constitutional Vital Signs - 24 hr 02/26/23 13:33 02/26/23 14:01 02/26/23 14:01 Temperature Pulse Rate 79 68 70 Respiratory Rate 21 15 14 Blood Pressure 99/75 155/68 H 155/68 H Blood Pressure [Right Arm] Pulse Oximetry 93 L 93 L 93 L Oxygen Delivery Method 02/26/23 14:47 02/26/23 21:09 02/27/23 06:00 Temperature 97.5 F L 97.7 F 97.5 F L Pulse Rate 67 66 66 Respiratory Rate 18 18 Blood Pressure Blood Pressure [Right Arm] 186/73 H 115/63 Pulse Oximetry 95 93 L 93 L Oxygen Delivery Method Room Air Room Air Room Air Documenting provider has reviewed patient's vital signs: yes Common normals: no apparent distress and well nourished Eye Common normals: conjunctivae normal and no scleral icterus Respiratory Common normals: normal respiratory effort, no use of accessory muscles and clear to auscultation bilaterally Cardio Common normals: no JVD, regular rate, regular rhythm, S1 normal heart sound and S2 normal heart sound GI Common normals: Normal to inspection, nondistended, normoactive bowel sounds present, soft to palpation, non-tender and no hepatosplenomegaly Extremity Common normals: normal to inspection and full ROM Neuro Common normals: oriented x3, moves all extremities, no focal motor deficits and no sensory deficits noted Psych Common normals: mental status grossly normal, thought process normal, cooperative, affect normal, denies homicidal ideation and denies suicidal ideation Results Labs Labs: Short CBC 02/26/23 02/27/23 Range/Units 11:43 07:04 WBC 5.8 6.2 (4.0-11.0) 10^3/uL Hgb 14.0 12.5 (12.0-16.0) g/dL Hct 40.8 37.8 (36.0-48.0) % Plt Count 782 H 686 H (150-450) 10^3/uL BMP 02/26/23 02/27/23 11:43 07:04 Sodium 133 L 136 Potassium 4.2 4.3 Chloride 98 101 Carbon Dioxide 25.2 28.0 BUN 16.0 16.0 Creatinine 0.86 0.86 Glucose 110 H 97 Calcium 9.1 8.7 Cardiac Enzymes 02/26/23 Range/Units 11:43 Total Creatine Kinase 60 (26-192) U/L CK-MB (CK-2) 0.90 (<=3.60) ng/mL Liver Function 02/26/23 02/27/23 Range/Units 11:43 07:04 Total Bilirubin 1.1 H 0.8 (0.2-1.0) mg/dL AST 23 16 (15-37) U/L ALT 23 21 (14-59) U/L Alkaline Phosphatase 66 62 (46-116) U/L Albumin 3.6 3.1 L (3.4-5.0) g/dL Urine 02/26/23 Range/Units 11:43 Urine Color Lt. yellow (YELLOW) Urine Clarity Clear (CLEAR) Urine pH 5.5 (5.0-9.0) Ur Specific [place] 1.010 (1.005-1.025) Urine Protein Negative (NEG/TRACE) mg/dL Urine Glucose (UA) Negative (NEGATIVE) mg/dL Assessment and Plan Assessment and Plan (1) Weakness generalized: Assessment and Plan: from dehydration, poor PO intake and nausea. No GI complaints today. Tolerated regular diet. Back to her baseline functional status. PT/OT eval. Stable for discharge with home health (2) Elevated lactic acid level: Assessment and Plan: due to dehydration. (3) Diabetes: Assessment and Plan: C/w home meds. No changes needed Qualifiers: Diabetes mellitus type: type 2 Diabetes mellitus extermination supervisor insulin use: without snf use Diabetes mellitus complication status: without complication Qualified Code(s): E11.9 - Type 2 diabetes mellitus without complications (4) Dementia: Assessment and Plan: Stable. On Aricept. Outpaitent f/u (5) Hypertension: Assessment and Plan: C/w lopressor, losartan and amlodipine (6) High cholesterol: Assessment and Plan: C/w statin
--- NOTE | 2023-02-27 12:43 | SWNOTE1 ---
Pt is going to be discharged today, worked with PT/OT. Pt will resume her [facility] HH, discharge orders sent to [facility]. Nursing contacting pt's son.
--- NOTE | 2023-02-27 12:58 | CM.NOTE ---
Rounds made with Dr. Sesay. Plan for discharge will be today. Current with [facility].
--- NOTE | 2023-03-03 11:08 | CM.DCFOLLOWU ---
Person spoke with: patient and son How are you feeling? ok How is your pain? none at the moment Did you understand your discharge instructions? yes son confirmed he did Do you have any questions about your discharge instructions? son denies Were you given any prescriptions at discharge? no Were you able to get your prescriptions filled? n/a Do you understand how to take your medications as ordered? yes son does Do you have any questions about your follow up appointment and do you plan to keep your follow up appointment? Follow up appointment is at the end of March per son. Son Travon stated he spoke with Dr. Merrill yesterday and confirmed that waiting this long for her follow up appointment is ok. Home health has not came out since discharge. Son does have their phone number and will call them to follow up. I will also have Diplomatic Interpreter Werner follow up with [facility] health as to when they will be coming. Is there anything else that you would like to discuss? no Questions/Comments/Concerns/Other: n/a
--- NOTE | 2023-03-03 11:17 | CM.DCFOLLOWU ---
I did call Dr. Merrill's office and spoke with someone in the scheduling department and she confirmed that the end of March follow up appointment was when the son wanted the appointment. I also informed her if she could pass along that the patient is supposed to have home health and per a conversation with the [facility] protective services social worker, [facility] did call yesterday and informed the protective services social worker they have called with no answer and stopped by the home and no one answered the door. The property portfolio officer did say she would pass this information along to Dr. Merrill. I did voice my concern regarding this patient's delay in follow up visit and home health unable to reach. I did speak with the patient on the phone during my discharge follow up call but she asked me to call her son Travon, which I did.
== END 2023-02-27 14:14 | disposition home health service (06) ==
LOC: ER 14:14 → MS 14:27
PROVIDERS: Admitting Provider Internal Medicine; Emergency Provider Emergency Medicine; PCP Family Medicine; Visit Provider Internal Medicine
DX: R53.1 Weakness (principal); E86.0 Dehydration; I10 Essential (primary) hypertension; E78.5 Hyperlipidemia, unspecified; F03.90 Unspecified dementia, unspecified severity, without behavioral disturbance, psychotic disturbance, mood disturbance, and anxiety; E11.9 Type 2 diabetes mellitus without complications; E83.42 Hypomagnesemia; E87.20 Acidosis, unspecified; Z87.891 Personal history of nicotine dependence; Z79.82 Long term (current) use of aspirin; Z79.84 Long term (current) use of oral hypoglycemic drugs; Z79.899 Other long term (current) drug therapy; Z87.440 Personal history of urinary (tract) infections
CPT/HCPCS: 36415; 71045; 74177; 80053; 81003; 82550; 82553; 83605; 83690; 83735; 83874; 83880; 84484; 85025; 93005; 96361; 96365; 96372; 96375; 97165; 97535; 99285; G0378; Q9967

== ENCOUNTER 2023-04-09 11:04 | Observation (INO) | payer MEDICARE, SELFPAY ==
[2023-04-09 11:11] VITALS: BP 153/77; PULSE 85; RESP 18; TEMP 36.8; O2SAT 98; BMI 20.1
--- NOTE | 2023-04-09 11:26 | ED_ITS ---
HPI - Abdominal Pain General Chief Complaint: Abdominal Pain Stated Complaint: ABD PAIN Time Seen by Provider: 04/09/23 11:26 Source: patient Mode of arrival: ambulance Limitations: no limitations History of Present Illness HPI narrative: Patient brought into the emergency department via EMS with complaint of weakness. Patient was well yesterday and this morning she woke up feeling ill. Her grandson called EMS because she did not feel well. Patient denies any fever, chills. Denies any sore throat. Denies any chest pain, or shortness of breath. She complained of abdominal pain and nausea. She denies any flank pain, hematuria, dysuria. She denies any diarrhea, or constipation. The patient denies any trauma. States she has not been eating and drinking in the last 3 days she has decreased appetite. Related Data Home Medications Medication Instructions Recorded Confirmed amlodipine 10 mg tablet 10 mg PO QDAY 02/12/23 04/09/23 aspirin 81 mg chewable tablet 81 mg PO .QD 02/12/23 04/09/23 atorvastatin 10 mg tablet 10 mg PO QPM 02/12/23 04/09/23 losartan 100 mg tablet 100 mg PO QDAY 02/12/23 04/09/23 metformin 500 mg tablet,extended 500 mg PO BID 02/12/23 04/09/23 release 24 hr metoprolol succinate 50 mg 50 mg PO QDAY 02/12/23 04/09/23 tablet,extended release 24 hr donepezil 5 mg tablet 5 mg PO .QHS 02/26/23 04/09/23 magnesium oxide 400 mg (241.3 mg 400 mg PO DAILY 02/26/23 04/09/23 magnesium) tablet clopidogrel 75 mg tablet 75 mg PO DAILY 04/09/23 04/09/23 donepezil 10 mg tablet (Aricept) 10 mg PO .QHS 04/09/23 04/09/23 levothyroxine 75 mcg capsule 75 mcg PO DAILY 04/09/23 04/09/23 Allergies Allergy/AdvReac Type Severity Reaction Status Date / Time Sulfa (Sulfonamide Allergy Verified 02/11/23 19:37 Antibiotics) Review of Systems ROS Status of ROS 10 or more systems reviewed and unremarkable except as noted in history and below [facility] Medical History (Updated 04/09/23 @ 14:49 by Doris Nicolas MD) Social History Smoking status: Former smoker Gender Identity: female Exam Narrative Exam Narrative: Nurses notes and vital signs reviewed and patient is not hypoxic. General: Nontoxic, Elderly, frail, chronically ill, and in no apparent distress. Skin: Warm, dry, no pallor noted. No Rash Head: Normocephalic, atraumatic. Neck: Supple, non-tender. Eye: Pupils are equal, round and EOMI. No scleral icterus. Ears, Nose, Mouth, and Throat: DEERING, TM clear, no posterior oropharynx erythema or nasal mucosal hypertrophy, uvula is mid-line Oral mucosa is dry Cardiovascular: Regular Rate and Rhythm without murmur, gallop or rub. Respiratory: No accessory muscle use or respiratory distress. Lungs are clear to auscultation, no wheezing, rales or rhonchi Chest Wall: no tenderness Back: No midline thoracic or lumbar vertebral tenderness. No CVA tenderness Musculoskeletal: normal ROM, no calf or popliteal tenderness, no lower extremity edema/swelling GI: Abdomen is soft, non-distended. Normal bowel sounds. No masses appreciated. mild LUQ tenderness to palpation. No rebound, guarding, or rigidity noted. Neurological: A&O x4. No cranial nerve dysfunction observed. No truncal ataxia. Moves all extremities. Sensation intact. Psychiatric: Cooperative and interactive. Normal mood and affect. Constitutional Vital Signs, click to edit/add: Last Vital Signs Temp 98.2 F 04/09/23 11:11 Pulse 85 04/09/23 11:11 Resp 18 04/09/23 11:11 BP 153/77 H 04/09/23 11:11 Pulse Ox 98 04/09/23 11:11 O2 Del Method Room Air 04/09/23 11:11 Course Vital Signs Vital signs: Vital Signs Temperature 98.2 F 04/09/23 11:11 Pulse Rate 85 04/09/23 11:11 Respiratory Rate 18 04/09/23 11:11 Blood Pressure 153/77 H 04/09/23 11:11 Pulse Oximetry 98 04/09/23 11:11 Oxygen Delivery Method Room Air 04/09/23 11:11 Temperature 98.2 F 04/09/23 11:11 Pulse Rate 85 04/09/23 11:11 Respiratory Rate 18 04/09/23 11:11 Blood Pressure 153/77 H 04/09/23 11:11 Pulse Oximetry 98 04/09/23 11:11 Oxygen Delivery Method Room Air 04/09/23 11:11 MDM - Abdominal Pain MDM Narrative Medical decision making narrative: Patient was given IV fluids. Blood studies and CT scan results discussed with patient and family. Right upper quadrant ultrasound is pending. The patient Was discussed with Dr. price to admit the patient for IV hydration. Patient will be admitted under observation. Medical Records Attestation: I reviewed the patient's medical records. Lab Data Attestation: I reviewed the patient's lab results. Labs: Lab Results 04/09/23 04/09/23 Range/Units 11:15 11:48 WBC 6.2 (4.0-11.0) 10^3/uL RBC 4.29 (4.20-5.40) 10^6/uL Hgb 13.1 (12.0-16.0) g/dL Hct 37.8 (36.0-48.0) % MCV 88.1 (81.0-99.0) fL MCH 30.5 (26.7-34.0) pg MCHC 34.7 (29.9-35.2) g/dL RDW 13.0 (11.0-15.0) % Plt Count 565 H (150-450) 10^3/uL MPV 7.8 L (9.5-13.5) fL Neut % (Auto) 66.3 (43.0-75.0) % Lymph % (Auto) 21.2 (20.5-60.0) % [place] % (Auto) 10.6 (1.7-12.0) % Eos % (Auto) 0.6 L (0.9-7.0) % Baso % (Auto) 0.8 (0.2-2.0) % Neut # (Auto) 4.1 (1.4-6.5) 10^3/uL Lymph # (Auto) 1.3 (1.2-3.8) 10^3/uL [place] # (Auto) 0.7 (0.3-0.8) 10^3/uL Eos # (Auto) 0.0 (0.0-0.7) 10^3/uL Baso # (Auto) 0.1 (0.0-0.1) 10^3/uL Abs Immat Gran (auto) 0.03 (0.00-0.03) 10^3/uL Imm/Tot Granulo (auto) 0.5 (0.0-0.5) % Sodium 124 L* (136-145) mmol/L Potassium 4.2 (3.5-5.1) mmol/L Chloride 90 L (98-107) mmol/L Carbon Dioxide 23.9 (21.0-32.0) mmol/L Anion Gap 14.3 BUN 5.0 L (7.0-18.0) mg/dL Creatinine 0.78 (0.55-1.02) mg/dL Est GFR ( Amer) >60 (>=60) Est GFR (Non-Af Amer) >60 (>=60) BUN/Creatinine Ratio 6.4 Glucose 153 H (74-106) mg/dL Lactate 0.8 (0.4-2.0) mmol/L Calcium 8.2 L (8.5-10.1) mg/dL Total Bilirubin 1.5 H (0.2-1.0) mg/dL AST 17 (15-37) U/L ALT 20 (14-59) U/L Alkaline Phosphatase 67 (46-116) U/L Troponin I High Sens 9.2 (4.0-51.3) pg/mL Total Protein 6.9 (6.4-8.2) g/dL Albumin 3.6 (3.4-5.0) g/dL Globulin 3.3 g/dL Albumin/Globulin Ratio 1.1 Lipase 65.0 L (73.0-393.0) U/L Urine Color Lt. yellow (YELLOW) Urine Clarity Clear (CLEAR) Urine pH 7.0 (5.0-9.0) Ur Specific [place] 1.015 (1.005-1.025) Urine Protein Negative (NEG/TRACE) mg/dL Urine Glucose (UA) Negative (NEGATIVE) mg/dL Urine Ketones Negative (NEGATIVE) mg/dL Urine Occult Blood Negative (NEGATIVE) Urine Nitrite Negative (NEGATIVE) Urine Bilirubin Negative (NEGATIVE) Urine Urobilinogen 0.2 (0.2-1.0) EU/dL Ur Leukocyte Esterase Negative (NEGATIVE) Discharge Plan Discharge Chief Complaint: Abdominal Pain Clinical Impression: Acute hyponatremia, Abdominal pain, Dehydration Patient Disposition: Admitted as Observation Time of Disposition Decision: 14:49 Condition: Good
--- NOTE | 2023-04-09 11:36 | US_ITS ---
The [address] [address] Patient Name: PRIYA MOON MRN: [id number] date: 1935 Sex: F Assigned Patient Location: ED.MAIN Current Patient Location: MS Accession/Order Number: [id number] Exam Date: 04/09/2023 13:35 Report Date: 04/09/2023 14:39 At the request of: TRI HERNÁNDEZ Procedure: US right upper quadrant EXAM: US right upper quadrant HISTORY: ruq pain COMPARISON: None. TECHNIQUE: Grayscale, color and Doppler ultrasound FINDINGS: Limited exam due to bowel gas The liver is normal in size, contour and echotexture. No focal hepatic mass. The liver measures 13.0 cm in length. Main portal vein is patent with a velocity of 42 cm/s. The gallbladder is normal in size. The gallbladder wall measures 1.5 mm, normal. No cholelithiasis. Common bile duct measures 3.6 mm. Negative sonographic Jiménez sign. The pancreas is poorly visualized due to bowel gas The right kidney measures 11.0 x 5.6 x 4.5 cm. US/US right upper quadrant IMPRESSION: No acute abnormality Electronically authenticated by: JEN WATSON Date: 04/09/2023 14:39
--- NOTE | 2023-04-09 11:36 | CT_ITS ---
The [address] [address] Patient Name: PRIYA MOON MRN: [id number] date: 1935 Sex: F Assigned Patient Location: ER Current Patient Location: Accession/Order Number: [id number] Exam Date: 04/09/2023 12:42 Report Date: 04/09/2023 13:28 At the request of: TRI HERNÁNDEZ Procedure: CT abdomen pelvis w con CT abdomen pelvis w con CLINICAL: Abdominal pain. Nausea. COMPARISON: 02/26/2023, 09/06/2022, 07/11/2021. TECHNIQUE: High-resolution axial images were obtained from diaphragms to pubic symphysis after administration of IV contrast. Dose reduction: mA and/or kV are were adjusted by automated exposure control software based upon patients height and weight. FINDINGS: Lung bases show pleural based densities suggestive of atelectasis, greater at the posterior right lung base. The liver shows no space-occupying lesion. Gallbladder shows no calcified gallstones. No CT evidence of biliary obstruction. The spleen is diminutive, as on the prior studies. Pancreas shows no evidence of mass or ductal obstruction. The pancreatic duct takes a normal course through the pancreatic head to drain at the main biliary ampulla. Distal pancreatic ductal diameter of 3 mm is within normal limits for age. Adrenal glands are unremarkable. Kidneys show no evidence of acute obstructive uropathy. No urinary bladder or ureteral calculus on either side. There are prominent extrarenal pelvises bilaterally, similar to prior studies. The uterus and adnexal regions appear grossly age-appropriate in size. No bowel obstruction or free intraperitoneal air is seen. There is mucosal thickening of the gastric antrum measuring up to 10 mm in thickness without evidence of extraluminal gas or fluid. Small hiatus hernia is present. Appendix is surgically absent. No evidence of localizing mesenteric inflammatory process, ascites or abdominal adenopathy. Osseous structures show no acute traumatic or destructive lesion. Stable L1 50% vertebral compression deformity noted. CT/CT abdomen pelvis w con IMPRESSION: 1. Diffuse mucosal thickening of the gastric antrum up to 10 mm. This may be due in part to incomplete distention, however correlate clinically for acute gastritis. 2. No additional acute intra-abdominal or intrapelvic findings. Small hiatus hernia is incidentally noted. 3. Bibasilar pleural based densities are present at the costophrenic sulci, greater on the right, suggestive of atelectasis, however possibility of posterior right basilar infectious infiltrate is not excluded. Electronically authenticated by: JEN SAINZ Date: 04/09/2023 13:28
[2023-04-09 11:45] LABS: Bilirubin Urine NEGATIVE (NEGATIVE); Blood Urine NEGATIVE (NEGATIVE); Clarity Urine CLEAR (CLEAR); Color Urine LT. YELLOW (YELLOW); Glucose Urine UA NEGATIVE (NEGATIVE); Ketones Urine NEGATIVE (NEGATIVE); Leukocyte Esterase Urine NEGATIVE (NEGATIVE); Nitrite Urine NEGATIVE (NEGATIVE); Protein Urine NEGATIVE (NEG/TRACE); Specific Gravity Urine 1.015 (1.005-1.025); Urobilinogen Urine 0.2 EU/dL (0.2-1.0)
[2023-04-09 11:46] LABS: Urine Microscopic Indicated NO
[2023-04-09 11:58] LABS: Basophils Absolute Auto 0.1 10^3/uL (0.0-0.1); Basophils Percent Auto 0.8 % (0.2-2.0); Eosinophils Percent Auto 0.6 % (0.9-7.0); Hematocrit 37.8 % (36.0-48.0); Hemoglobin 13.1 g/dL (12.0-16.0); Immature Granulocytes Abs Auto 0.03 10^3/uL (0.00-0.03); Immature Granulocytes Pct Auto 0.5 % (0.0-0.5); Lymphocytes Absolute Auto 1.3 10^3/uL (1.2-3.8); Lymphocytes Percent Auto 21.2 % (20.5-60.0); Mean Corpuscular HGB Conc 34.7 g/dL (29.9-35.2); Mean Corpuscular Hemoglobin 30.5 pg (26.7-34.0); Mean Corpuscular Volume 88.1 fL (81.0-99.0); Mean Platelet Volume 7.8 fL (9.5-13.5); Monocytes Absolute Auto 0.7 10^3/uL (0.3-0.8); Monocytes Percent Auto 10.6 % (1.7-12.0); Neutrophils Absolute Auto 4.1 10^3/uL (1.4-6.5); Neutrophils Percent Auto 66.3 % (43.0-75.0); Platelet Count 565 10^3/uL (150-450); Red Blood Count 4.29 10^6/uL (4.20-5.40); White Blood Count 6.2 10^3/uL (4.0-11.0)
[2023-04-09] MEDS: 0.9 % SODIUM CHLORIDE 1,000 ML 999 ML IV (12:04)
[2023-04-09 12:13] LABS: Alanine Aminotransferase 20 U/L (14-59); Albumin Globulin Ratio 1.1; Albumin Level 3.6 g/dL (3.4-5.0); Alkaline Phosphatase 67 U/L (46-116); Anion Gap 14.3; Aspartate Amino Transferase 17 U/L (15-37); BUN Creatinine Ratio 6.4; Bilirubin Total 1.5 mg/dL (0.2-1.0); Calcium 8.2 mg/dL (8.5-10.1); Carbon Dioxide 23.9 mmol/L (21.0-32.0); Chloride 90 mmol/L (98-107); Estimated GFR (African America >60 (>=60); Estimated GFR (Non-African Ame >60 (>=60); Globulin 3.3 g/dL; Glucose 153 mg/dL (74-106); Lactate/Lactic Acid 0.8 mmol/L (0.4-2.0); Potassium 4.2 mmol/L (3.5-5.1); Total Protein 6.9 g/dL (6.4-8.2); Troponin I High Sensitivity 9.2 pg/mL (4.0-51.3)
[2023-04-09 12:16] LABS: Sodium 124 mmol/L (136-145)
[2023-04-09 15:01] VITALS: BP 148/69; PULSE 67; RESP 18; TEMP 36.3; O2SAT 93; BMI 19.2
[2023-04-09 15:18] LABS: Creatinine Urine Random 17.19 mg/dL (20.00-300.00); Sodium Urine Random 95 mmol/L (30-90)
[2023-04-09 17:07] LABS: Anion Gap 15.4; BUN Creatinine Ratio 5.8; Calcium 8.2 mg/dL (8.5-10.1); Carbon Dioxide 22.9 mmol/L (21.0-32.0); Chloride 94 mmol/L (98-107); Estimated GFR (African America >60 (>=60); Estimated GFR (Non-African Ame >60 (>=60); Glucose 210 mg/dL (74-106); Potassium 4.3 mmol/L (3.5-5.1); Sodium 128 mmol/L (136-145)
[2023-04-09] MEDS: INSULIN ASPART 300 UNIT/3 ML PEN SUBQ (18:22)
[2023-04-09] MEDS: ENOXAPARIN SODIUM 30 MG/0.3 ML SYRINGE SUBQ (18:22)
[2023-04-09] MEDS: 0.9 % SODIUM CHLORIDE 1,000 ML 75 ML IV (18:22)
[2023-04-09 19:19] VITALS: RESP 18
[2023-04-09] MEDS: ATORVASTATIN CALCIUM 10 MG TABLET PO (19:58)
[2023-04-09 20:29] LABS: Glucometer 57 mg/dL (74-106)
[2023-04-09 20:36] VITALS: BP 138/61; PULSE 76; RESP 20; TEMP 36.5; O2SAT 91
[2023-04-09 20:59] LABS: Glucometer 98 mg/dL (74-106)
[2023-04-10 05:11] LABS: Anion Gap 11.7; BUN Creatinine Ratio 8.1; Calcium 7.7 mg/dL (8.5-10.1); Carbon Dioxide 25.3 mmol/L (21.0-32.0); Chloride 99 mmol/L (98-107); Estimated GFR (African America >60 (>=60); Estimated GFR (Non-African Ame >60 (>=60); Glucose 103 mg/dL (74-106); Sodium 132 mmol/L (136-145)
[2023-04-10 06:25] VITALS: BP 151/66; PULSE 80; RESP 18; TEMP 36.5; O2SAT 94
[2023-04-10] MEDS: 0.9 % SODIUM CHLORIDE 1,000 ML 75 ML IV (07:40)
[2023-04-10] MEDS: LOSARTAN POTASSIUM 50 MG TABLET 100 MG PO (08:16)
[2023-04-10] MEDS: ASPIRIN 81 MG TAB.CHEW PO (08:16)
[2023-04-10] MEDS: CLOPIDOGREL BISULFATE 75 MG TABLET PO (08:16)
[2023-04-10] MEDS: METOPROLOL SUCCINATE 50 MG TAB.ER.24H PO (08:16)
[2023-04-10] MEDS: MAGNESIUM OXIDE 400 MG TABLET PO (08:16)
[2023-04-10] MEDS: PANTOPRAZOLE SODIUM 40 MG VIAL IV (08:16)
[2023-04-10] MEDS: LEVOTHYROXINE SODIUM 75 MCG TABLET PO (08:16)
[2023-04-10 08:21] VITALS: BP 131/60
[2023-04-10] MEDS: AMLODIPINE BESYLATE 5 MG TABLET 10 MG PO (08:21)
[2023-04-10 08:30] LABS: Glucometer 114 mg/dL (74-106)
--- NOTE | 2023-04-10 10:40 | CM.NOTE ---
Rounds made with galen Joel for pt to discharge to home with [facility].
[2023-04-10 11:15] VITALS: BMI 19.1
[2023-04-10 11:30] LABS: Glucometer 304 mg/dL (74-106)
[2023-04-10] MEDS: INSULIN ASPART 300 UNIT/3 ML PEN SUBQ (11:56)
--- NOTE | 2023-04-10 13:14 | P.HP_ITS ---
H&P: HPI History of Present Illness Chief complaint: ABD PAIN, hyponatremia,dehydration Narrative: HPI and Hospital Course: 87 y o female came in last night for abdominal discomfort, poor PO intake, dehydration and generalized weakness. She reported she had epigastric discomfort, poor appetite and mild nausea. All of her symptoms had been going on for past 2-3 days. She denies fever, change in bowel habits, any urinary complaints. Her w/u in ED showed moderate hyponatremia with sodium of 124 and was admitted for observation for IV hydration, abdominal discomfort. Patient received gentle IV hydration overnight with improvement in her serum sodium. She also was given IV protonix as her GI symptoms seemed c/w gastritis/dyspepsia and this morning, she had no active complaints to offer. She tolerated PO diet w/o any problems. Admission Diagnosis Hyponatremia Abdominal pain T2 DM CAD H/o CVA Dementia Hypothyroidism HLD Discharge diagnosis as above Discharge status stable Review of Systems ROS Status of ROS 10 or more systems reviewed and unremarkable except as noted in history and below [facility] Medical History (Updated 04/10/23 @ 13:24 by Shaikh Shama MD) Social History (Updated 04/10/23 @ 13:22 by Shaikh Shama MD) Within the past year, how often did you have a drink containing alcohol: never Within the past year, how often did you have six or more drinks on one occasion: never Score interpretation: A score less than 3 is consistent with normal alcohol consumption. Smoking status: Former smoker Non-prescribed substance use: denies use Gender Identity: female Meds Home Medications and Allergies Home Medications Medication Instructions Recorded Confirmed Type amlodipine 10 mg tablet 10 mg PO QDAY 02/12/23 04/09/23 History aspirin 81 mg chewable tablet 81 mg PO .QD 02/12/23 04/09/23 History atorvastatin 10 mg tablet 10 mg PO QPM 02/12/23 04/09/23 History losartan 100 mg tablet 100 mg PO QDAY 02/12/23 04/09/23 History metformin 500 mg tablet,extended 500 mg PO BID 02/12/23 04/09/23 History release 24 hr metoprolol succinate 50 mg 50 mg PO QDAY 02/12/23 04/09/23 History tablet,extended release 24 hr magnesium oxide 400 mg (241.3 mg 400 mg PO DAILY 02/26/23 04/09/23 History magnesium) tablet clopidogrel 75 mg tablet 75 mg PO DAILY 04/09/23 04/09/23 History donepezil 10 mg tablet (Aricept) 10 mg PO .QHS 04/09/23 04/09/23 History levothyroxine 75 mcg capsule 75 mcg PO DAILY 04/09/23 04/09/23 History pantoprazole 40 mg tablet,delayed 40 mg PO DAILY #30 tabs 04/10/23 Rx release (Protonix) Allergies Allergy/AdvReac Type Severity Reaction Status Date / Time Sulfa (Sulfonamide Allergy Verified 04/09/23 15:28 Antibiotics) Exam Constitutional Vital Signs, click to edit/add: Last Vital Signs Temp 97.7 F 04/10/23 06:25 Pulse 80 04/10/23 06:25 Resp 18 04/10/23 06:25 BP 131/60 04/10/23 08:21 Pulse Ox 94 L 04/10/23 06:25 O2 Del Method Room Air 04/10/23 06:25 Documenting provider has reviewed patient's vital signs: yes Common normals: no apparent distress and oriented x3 General appearance: frail appearing HENMT Common normals: normocephalic and head/scalp atraumatic Respiratory Common normals: normal respiratory effort, no use of accessory muscles and clear to auscultation bilaterally Cardio Common normals: no JVD, regular rate, regular rhythm, S1 normal heart sound and S2 normal heart sound GI Common normals: Normal to inspection, nondistended, normoactive bowel sounds present, soft to palpation, non-tender and no hepatosplenomegaly Extremity Common normals: normal to inspection and full ROM Neuro Common normals: oriented x3, CN's II-XII intact bilaterally, moves all extremities, no focal motor deficits and no sensory deficits noted Psych Common normals: mental status grossly normal, cooperative, denies homicidal ideation and denies suicidal ideation Results Labs Labs: [facility] 04/09/23 04/10/23 16:51 04:13 Sodium 128 L 132 L Potassium 4.3 4.0 Chloride 94 L 99 Carbon Dioxide 22.9 25.3 BUN 5.0 L 6.0 L Creatinine 0.86 0.74 Glucose 210 H 103 Calcium 8.2 L 7.7 L Assessment and Plan Assessment and Plan (1) Acute hyponatremia: Assessment and Plan: from poor PO intake. Resolved with IV hydration. Outpatient BMP in one week to ensure stable. (2) Abdominal pain: Assessment and Plan: No acute pathology on CT abd Likely gastritis vs dyspepsis Resolved with protonix Will d/c on oral protonix (3) Dehydration: Assessment and Plan: due to poor PO intake. Received IVF for it. Resolved. (4) Weakness generalized: Assessment and Plan: due to poor PO intake/dehydration. Improved. PT/OT eval. Patient did well and is at baseline (5) Diabetes: Assessment and Plan: C/w metformin as outpatient. Qualifiers: Diabetes mellitus type: type 2 Diabetes mellitus care home insulin use: without joint terminal attack controller use Diabetes mellitus complication status: without complication Qualified Code(s): E11.9 - Type 2 diabetes mellitus without complications (6) Hypertension: Assessment and Plan: At goal. C/w Losartan, Toprol and amlodipine. (7) Dementia: Assessment and Plan: On aricept as outpatient. AO X 3. Unchanged Qualifiers: Dementia type: vascular dementia Dementia behavioral or psychological symptom: without behavioral, psychotic, or mood disturbance or anxiety (8) CAD (coronary artery disease): Assessment and Plan: on ASA, plavix and statin. No CP, SOB, or symptoms concerning for active cardiac ischemia. (9) H/O: CVA (cerebrovascular accident): Assessment and Plan: Non focal exam. No change in mental status. On ASA, PLAVIX and statin (10) Hypothyroidism: Assessment and Plan: C/w levothyroxine. (11) HLD (hyperlipidemia): Assessment and Plan: On statin due to hx of T2 DM, CAD and CVA
--- NOTE | 2023-04-10 13:27 | CM.NOTE ---
Called [facility] and they are ok to continue with pt, faxed clinical and discharge. Updated RN
--- NOTE | 2023-04-14 14:53 | CM.DCFOLLOWU ---
Person spoke with: Kait How are you feeling? Much better How is your pain? Abdominal pain gone Did you understand your discharge instructions? yes Do you have any questions about your discharge instructions? no Were you given any prescriptions at discharge? yes Were you able to get your prescriptions filled? yes Do you understand how to take your medications as ordered? yes Do you have any questions about your follow up appointment and do you plan to keep your follow up appointment? No it is next Thursday and its on my calender so I don't forget. Is there anything else that you would like to discuss? no Questions/Comments/Concerns/Other:
== END 2023-04-10 12:22 | disposition home or self-care (01) ==
LOC: ER 14:00 → MS 14:35
PROVIDERS: Admitting Provider Internal Medicine; Emergency Provider Emergency Medicine; PCP Family Medicine; Visit Provider Internal Medicine
DX: E87.1 Hypo-osmolality and hyponatremia (principal); R10.9 Unspecified abdominal pain; E11.9 Type 2 diabetes mellitus without complications; I25.10 Atherosclerotic heart disease of native coronary artery without angina pectoris; Z86.73 Personal history of transient ischemic attack (TIA), and cerebral infarction without residual deficits; F01.50 Vascular dementia, unspecified severity, without behavioral disturbance, psychotic disturbance, mood disturbance, and anxiety; E86.0 Dehydration; R53.1 Weakness; I10 Essential (primary) hypertension; E03.9 Hypothyroidism, unspecified; E78.5 Hyperlipidemia, unspecified; Z87.891 Personal history of nicotine dependence; Z79.899 Other long term (current) drug therapy; Z79.890 Hormone replacement therapy; Z79.82 Long term (current) use of aspirin
CPT/HCPCS: 36415; 74177; 76705; 80048; 80053; 81003; 82570; 82948; 83605; 83690; 84300; 84484; 85025; 96361; 96372; 96374; 97161; 97165; 99285; G0378; Q9967

== ENCOUNTER 2023-04-14 13:51 | Outpatient (REF) | payer MEDICARE, SELFPAY ==
[2023-04-14 14:48] LABS: Basophils Absolute Auto 0.1 10^3/uL (0.0-0.1); Eosinophils Absolute Auto 0.1 10^3/uL (0.0-0.7); Eosinophils Percent Auto 1.2 % (0.9-7.0); Hematocrit 36.1 % (36.0-48.0); Hemoglobin 12.2 g/dL (12.0-16.0); Immature Granulocytes Abs Auto 0.03 10^3/uL (0.00-0.03); Immature Granulocytes Pct Auto 0.4 % (0.0-0.5); Lymphocytes Absolute Auto 1.3 10^3/uL (1.2-3.8); Lymphocytes Percent Auto 19.4 % (20.5-60.0); Mean Corpuscular HGB Conc 33.8 g/dL (29.9-35.2); Mean Corpuscular Volume 91.9 fL (81.0-99.0); Mean Platelet Volume 8.2 fL (9.5-13.5); Monocytes Absolute Auto 0.6 10^3/uL (0.3-0.8); Monocytes Percent Auto 8.1 % (1.7-12.0); Neutrophils Absolute Auto 4.8 10^3/uL (1.4-6.5); Neutrophils Percent Auto 69.9 % (43.0-75.0); Platelet Count 593 10^3/uL (150-450); Red Blood Count 3.93 10^6/uL (4.20-5.40); Red Cell Distribution Width 13.8 % (11.0-15.0); White Blood Count 6.8 10^3/uL (4.0-11.0)
[2023-04-14 15:23] LABS: Estimated Average Glucose 126 mg/dL
[2023-04-14 15:54] LABS: Free T4 1.22 ng/dL (0.76-1.46)
[2023-04-14 15:55] LABS: Anion Gap 13.3; BUN Creatinine Ratio 8.5; Calcium 8.5 mg/dL (8.5-10.1); Carbon Dioxide 26.6 mmol/L (21.0-32.0); Chloride 94 mmol/L (98-107); Estimated GFR (African America >60 (>=60); Estimated GFR (Non-African Ame >60 (>=60); Glucose 217 mg/dL (74-106); Potassium 3.9 mmol/L (3.5-5.1); Sodium 130 mmol/L (136-145); Thyroid Stimulating Hormone 2.601 uIU/mL (0.358-3.740)
== END 2023-04-14 13:52 | disposition home or self-care (01) ==
LOC: LAB 13:51
PROVIDERS: PCP Family Medicine; Visit Provider Family Medicine
DX: E03.9 Hypothyroidism, unspecified (principal); I10 Essential (primary) hypertension
CPT/HCPCS: 36415; 80048; 83036; 84439; 84443; 85025

== ENCOUNTER 2023-05-12 11:11 | Outpatient (REF) | payer MEDICARE, SELFPAY ==
[2023-05-12 12:58] LABS: Anion Gap 14.9; BUN Creatinine Ratio 5.4; Calcium 8.4 mg/dL (8.5-10.1); Carbon Dioxide 27.8 mmol/L (21.0-32.0); Chloride 96 mmol/L (98-107); Estimated GFR (African America >60 (>=60); Estimated GFR (Non-African Ame 58 (>=60); Glucose 135 mg/dL (74-106); Potassium 4.7 mmol/L (3.5-5.1); Sodium 134 mmol/L (136-145)
== END 2023-05-12 11:12 | disposition home or self-care (01) ==
LOC: LAB 11:11
PROVIDERS: PCP Family Medicine; Visit Provider Family Medicine
DX: E87.1 Hypo-osmolality and hyponatremia (principal)
CPT/HCPCS: 36415; 80048

== ENCOUNTER 2024-01-04 21:42 | Emergency (ER) | payer MEDICARE, SELFPAY ==
[2024-01-04 21:53] VITALS: BP 148/108; PULSE 71; TEMP 36.6; O2SAT 98; BMI 19.5
--- NOTE | 2024-01-04 21:55 | CT_ITS ---
The [address] [address] Patient Name: PRIYA MOON MRN: [id number] date: 1935 Sex: F Assigned Patient Location: ER Current Patient Location: Accession/Order Number: [id number] Exam Date: 01/04/2024 22:00 Report Date: 01/04/2024 22:35 At the request of: RAFAL FRANCIS Procedure: CT cervical spine wo con EXAM: CT cervical spine wo con HISTORY: Patient fell. TECHNIQUE: Axial CT scans through the cervical spine were obtained without contrast administration. Sagittal and coronal reconstruction images were obtained. Dose reduction techniques were achieved by using: automated exposure control and/or adjustment of mA and /or kV according to patient size and/or the use of an iterative reconstruction technique. COMPARISON: None. FINDINGS: No fracture or posttraumatic malalignment is shown. Straightening of the cervical spine is present. Decreased disc height and associated discovertebral complexes from C3 to T1 without central spinal stenosis. Moderate stenosis of the right neural foramina from C4 to C7 and the left neural foramina from C4 to C6 secondary to decreased disc height and uncovertebral hypertrophy. Minimal degenerative spondylolisthesis of C7 on T1. The prevertebral soft tissue space appears normal. Visualized intracranial contents appear normal. The visualized neck shows no adenopathy. Visualized lung apices are clear. CT/CT cervical spine wo con IMPRESSION: No acute fracture or posttraumatic malalignment. Straightening of the cervical spine, likely due to positioning or muscle spasm. Moderate stenosis of the right neural foramina from C4 to C7 and the left neural foramina from C4 to C6 secondary to decreased disc height and uncovertebral hypertrophy. Electronically authenticated by: PLACIDO LEON Date: 01/04/2024 22:35
--- NOTE | 2024-01-04 21:55 | CT_ITS ---
The [place] [id number] Patient Name: PRIYA MOON MRN: [id number] date: 1935 Sex: F Assigned Patient Location: ER Current Patient Location: Accession/Order Number: [id number] Exam Date: 01/04/2024 22:00 Report Date: 01/04/2024 22:29 At the request of: RAFAL FRANCIS Procedure: CT head/brain wo con EXAM: CT head/brain wo con HISTORY: Patient fell. TECHNIQUE: Axial CT scans through the head were obtained without IV contrast administration. Dose reduction techniques were achieved by using: automated exposure control and/or adjustment of mA and /or kV according to patient size and/or the use of an iterative reconstruction technique. COMPARISON: 09/30/2021. FINDINGS: Mild to moderate low attenuation in the cerebral hemispheres without associated mass effect. An old lacunar infarct in the right basal ganglia is unchanged. To the limit of CT, the posterior fossa appears unremarkable. No intracranial hemorrhage is present. No depressed skull fracture is present. The ventricular system and cortical sulci are prominent. No area of abnormal mass effect is shown. The visualized orbits show no gross mass. The visualized paranasal sinuses show no air-fluid levels. Mastoid air cells are clear. CT/CT head/brain wo con IMPRESSION: 1. No depressed skull fracture or intracranial hemorrhage. 2. Mild to moderate old microvascular ischemic changes. Moderate cerebral volume loss. Electronically authenticated by: PLACIDO LEON Date: 01/04/2024 22:29
--- NOTE | 2024-01-04 21:55 | XR_ITS ---
The [address] [address] Patient Name: PRIYA MOON MRN: [id number] date: 1935 Sex: F Assigned Patient Location: ER Current Patient Location: ED.MAIN Accession/Order Number: [id number] Exam Date: 01/04/2024 22:00 Report Date: 01/04/2024 22:54 At the request of: RAFAL FRANCIS Procedure: XR elbow RT min 3V EXAM: XR elbow RT min 3V HISTORY: fall COMPARISON: None. FINDINGS/IMPRESSION: 1. No acute fracture or dislocation 2. no definitive elbow joint effusion. 3. Normal alignment of the elbow. Electronically authenticated by: YIN MOSQUERA Date: 01/04/2024 22:54
--- NOTE | 2024-01-04 21:56 | ED_ITS ---
HPI HPI - Fall General Chief Complaint: Fall Stated Complaint: FALL Time Seen by Provider: 01/04/24 21:52 History of Present Illness HPI Narrative: 88-year-old female presents after a fall. Her feet got tangled and she fell and she hit her head and her right elbow. This happened within the last hour. She is on an unknown blood thinner. She was transported here by paramedics. She does not complain of lower extremity pain. No chest pain shortness of breath or abdominal pain. Related Data Home Medications ?Medication ?Instructions ?Recorded ?Confirmed amlodipine 10 mg tablet 10 mg PO QDAY 02/12/23 01/04/24 aspirin 81 mg chewable tablet 81 mg PO .QD 02/12/23 01/04/24 atorvastatin 10 mg tablet 10 mg PO QPM 02/12/23 01/04/24 losartan 100 mg tablet 100 mg PO QDAY 02/12/23 01/04/24 metformin 500 mg tablet,extended 500 mg PO BID 02/12/23 01/04/24 release 24 hr metoprolol succinate 50 mg 50 mg PO QDAY 02/12/23 01/04/24 tablet,extended release 24 hr magnesium oxide 400 mg (241.3 mg 400 mg PO DAILY 02/26/23 01/04/24 magnesium) tablet clopidogrel 75 mg tablet 75 mg PO DAILY 04/09/23 01/04/24 donepezil 10 mg tablet (Aricept) 10 mg PO .QHS 04/09/23 01/04/24 levothyroxine 75 mcg capsule 75 mcg PO DAILY 04/09/23 01/04/24 Previous Rx's ?Medication ?Instructions ?Recorded pantoprazole 40 mg tablet,delayed 40 mg PO DAILY #30 tabs 04/10/23 release (Protonix) Allergies Allergy/AdvReac Type Severity Reaction Status Date / Time Sulfa (Sulfonamide Allergy Verified 01/04/24 21:58 Antibiotics) Opioid HPI Opioid Management Most Recent Pain and Opioid Data: Last Pain Scale 0 02/12/23 09:40 Last Pain Intensity 0 02/12/23 09:40 Review of Systems ROS Narrative Unobtainable, age and dementia [facility] Medical History (Updated 01/04/24 @ 23:18 by Tyrone Faulkner MD) Hypothyroidism ?E03.9 - Hypothyroidism, unspecified (ICD-10) HLD (hyperlipidemia) ?E78.5 - Hyperlipidemia, unspecified (ICD-10) H/O: CVA (cerebrovascular accident) ?Z86.73 - Personal history of transient ischemic attack (TIA), and cerebral infarction without residual deficits (ICD-10) CAD (coronary artery disease) ?I25.10 - Atherosclerotic heart disease of [place] coronary artery without angina pectoris (ICD-10) Dementia ?F03.90 - Unspecified dementia, unspecified severity, without behavioral disturbance, psychotic disturbance, mood disturbance, and anxiety (ICD-10) Diabetes ?E11.9 - Type 2 diabetes mellitus without complications (ICD-10) High cholesterol ?E78.00 - Pure hypercholesterolemia, unspecified (ICD-10) Hypertension ?I10 - Essential (primary) hypertension (ICD-10) UTI (urinary tract infection) ?N39.0 - Urinary tract infection, site not specified (ICD-10) Weakness generalized ?R53.1 - Weakness (ICD-10) Falls frequently ?R29.6 - Repeated falls (ICD-10) Social History (Updated 04/10/23 @ 13:22 by Shaikh Shama MD) Within the past year, how often did you have a drink containing alcohol: never Within the past year, how often did you have six or more drinks on one occasion: never Score interpretation: A score less than 3 is consistent with normal alcohol consumption. Smoking status: Former smoker Non-prescribed substance use: denies use Gender Identity: female Exam Narrative Exam Narrative: Nurses note and vital signs reviewed and patient is not hypoxic. General: The patient in no apparent distress. Patient is resting comfortably on cart. Skin: Warm, dry, no pallor noted. There is no rash noted. Head: Normocephalic, atraumatic Eye: Normal conjunctiva, no drainage Ears, Nose, Mouth, and Throat: oral mucosa is moist. Nares patent. She is hard of hearing Cardiovascular: Regular Rate and Rhythm Respiratory: Patient is in no distress, no accessory muscle use, lungs are clear to auscultation, no wheezing, rales or rhonchi Back: non-tender GI: Soft and nontender Musculoskeletal: Abrasion present at her right elbow which has full range of motion. No palpable tenderness to her feet, ankles, knees, or hips. All joints in her upper extremities have full range of motion. Neurological: Awake and alert Psychiatric: Cooperative Constitutional Vital Signs, click to edit/add: Last Vital Signs Temp 98 F 01/04/24 21:53 Pulse 71 01/04/24 21:53 Resp 18 01/04/24 21:53 BP 148/108 H 01/04/24 21:53 Pulse Ox 98 01/04/24 21:53 O2 Del Method Room Air 01/04/24 21:53 Course Vital Signs Vital signs: Vital Signs Temperature 98 F 01/04/24 21:53 Pulse Rate 71 01/04/24 21:53 Respiratory Rate 18 01/04/24 21:53 Blood Pressure 148/108 H 01/04/24 21:53 Pulse Oximetry 98 01/04/24 21:53 Oxygen Delivery Method Room Air 01/04/24 21:53 Temperature 98 F 01/04/24 21:53 Pulse Rate 71 01/04/24 21:53 Respiratory Rate 18 01/04/24 21:53 Blood Pressure 148/108 H 01/04/24 21:53 Pulse Oximetry 98 01/04/24 21:53 Oxygen Delivery Method Room Air 01/04/24 21:53 MDM - Fall MDM Narrative Medical decision making narrative: CT brain, CT C-spine, and right elbow x-rays are all negative. Findings are discussed with the patient and her family. Tetanus is updated. Differential Diagnosis Differential diagnosis: Likely other (Intracranial hemorrhage, fall, contusion, abrasion, elbow fracture) Lab Data Attestation: I reviewed the patient's lab results. Labs: Lab Results 01/04/24 Range/Units 22:00 Urine Color Lt. yellow (YELLOW) Urine Clarity Clear (CLEAR) Urine pH 6.5 (5.0-9.0) Ur Specific [place] <=1.005 A (1.005-1.025) Urine Protein Negative (NEG/TRACE) mg/dL Urine Glucose (UA) Negative (NEGATIVE) mg/dL Urine Ketones Negative (NEGATIVE) mg/dL Urine Occult Blood Negative (NEGATIVE) Urine Nitrite Negative (NEGATIVE) Urine Bilirubin Negative (NEGATIVE) Urine Urobilinogen 0.2 (0.2-1.0) EU/dL Ur Leukocyte Esterase Negative (NEGATIVE) Urine RBC None seen (0-2) #/HPF Urine WBC None seen (NONE SEEN) #/HPF Ur Squamous Epith Cells None seen (NONE/RARE) #/LPF Urine Crystals None seen (None Seen) #/HPF Urine Bacteria None seen (NONE SEEN) #/HPF Urine Casts None seen (NONE SEEN) #/LPF Urine Mucus None seen (NONE SEEN) Ur Culture Indicated? No Imaging Data CT scan - head: Radiologist's impression: ITS Impressions Cervical Spine CT 01/04/24 21:55 IMPRESSION: No acute fracture or posttraumatic malalignment. Straightening of the cervical spine, likely due to positioning or muscle spasm. Moderate stenosis of the right neural foramina from C4 to C7 and the left neural foramina from C4 to C6 secondary to decreased disc height and uncovertebral hypertrophy. Electronically authenticated by: PLACIDO LEON Date: 01/04/2024 22:[address] 01/04/24 21:55 IMPRESSION: 1. No depressed skull fracture or intracranial hemorrhage. 2. Mild to moderate old microvascular ischemic changes. Moderate cerebral volume loss. Electronically authenticated by: PLACIDO LEON Date: 01/04/2024 22:29 Discharge Plan Discharge Stand Alone Forms: Portal Instructions Chief Complaint: Fall Clinical Impression: Fall, Abrasion of right elbow Patient Disposition: Home, Self-Care Time of Disposition Decision: 23:18 Condition: Good Mode of Transportation: Private Vehicle Prescriptions / Home Meds: No Action magnesium oxide 400 mg (241.3 mg magnesium) tablet 400 mg PO DAILY Rx Instructions: PER RETAIL FILL HX - LAST FILLED 03/25/23 #90 FOR A 90 DAY SUPPLY amlodipine 10 mg tablet 10 mg PO QDAY Rx Instructions: PER RETAIL FILL HX - LAST FILLED 03/25/23 #90 FOR 90 DAY SUPPLY atorvastatin 10 mg tablet 10 mg PO QPM Rx Instructions: PER RETAIL FILL HX - LAST FILLED 04/04/23 #90 FOR A 90 DAY SUPPLY aspirin 81 mg tablet,chewable 81 mg PO .QD losartan 100 mg tablet 100 mg PO QDAY Rx Instructions: PER RETAIL FILL HX - LAST FILLED 04/04/23 #90 FOR A 90 DAY SUPPLY metformin 500 mg tablet extended release 24 hr 500 mg PO BID Rx Instructions: PER RETAIL FILL HX - LAST FILLED 01/23/23 #180 FOR A 90 DAY SUPPLY metoprolol succinate 50 mg tablet extended release 24 hr 50 mg PO QDAY Rx Instructions: PER RETAIL FILL HX - LAST FILLED 04/07/23 #90 FOR A 90 DAY SUPPLY levothyroxine 75 mcg capsule 75 mcg PO DAILY Rx Instructions: PER RETAIL FILL HX - LAST FILLED 04/08/23 #90 FOR A 90 DAY SUPPLY clopidogrel 75 mg tablet 75 mg PO DAILY Rx Instructions: PER RETAIL FILL HX - LAST FILLED 04/03/23 #90 FOR A 90 DAY SUPPLY donepezil [Aricept] 10 mg tablet 10 mg PO .QHS Rx Instructions: PER RETAIL FILL HX - PT FILLED DONEPEZIL 10MG PO QHS - 03/12/23 AND 04/05/23 #30 TABS FOR 30 DAYS EACH FILL pantoprazole [Protonix] 40 mg tablet,delayed release (DR/EC) 40 mg PO DAILY Qty: 30 0RF Print Language: Peruvian Instructions: Fall Prevention for Older Adults (ED), Abrasion (ED) Referrals: Kerline Merrill MD [Primary Care Provider] - 1 week
[2024-01-04 23:05] LABS: Bilirubin Urine NEGATIVE (NEGATIVE); Blood Urine NEGATIVE (NEGATIVE); Clarity Urine CLEAR (CLEAR); Color Urine LT. YELLOW (YELLOW); Glucose Urine UA NEGATIVE (NEGATIVE); Ketones Urine NEGATIVE (NEGATIVE); Leukocyte Esterase Urine NEGATIVE (NEGATIVE); Nitrite Urine NEGATIVE (NEGATIVE); Protein Urine NEGATIVE (NEG/TRACE); Specific Gravity Urine <=1.005 (1.005-1.025); Urobilinogen Urine 0.2 EU/dL (0.2-1.0); pH Urine 6.5 (5.0-9.0)
[2024-01-04 23:11] LABS: Bacteria Urine NONE SEEN #/HPF (NONE SEEN); Cast Seen? NONE SEEN #/LPF (NONE SEEN); Crystals Seen? None Seen #/HPF (None Seen); Mucus Urine NONE SEEN (NONE SEEN); RBC Urine NONE SEEN #/HPF (0-2); Squamous Epithelial Cell Urine NONE SEEN #/LPF (NONE/RARE); Urine Culture Indicated NO; WBC Urine NONE SEEN #/HPF (NONE SEEN)
[2024-01-04] MEDS: ADACEL DIPH,PERTUSS(ACELL),TET VAC/PF 0.5 ML ADULT SYRINGE IM (23:25)
[2024-01-04 23:35] VITALS: BP 159/82; PULSE 76; O2SAT 97
== END 2024-01-04 23:46 | disposition home or self-care (01) ==
PROVIDERS: Emergency Provider Emergency Medicine; PCP Family Medicine
DX: S50.311A Abrasion of right elbow, initial encounter (principal); Z23 Encounter for immunization; W19.XXXA Unspecified fall, initial encounter; Z79.82 Long term (current) use of aspirin; Z79.899 Other long term (current) drug therapy; Z79.84 Long term (current) use of oral hypoglycemic drugs; Z79.890 Hormone replacement therapy; E03.9 Hypothyroidism, unspecified; E78.00 Pure hypercholesterolemia, unspecified; Z86.73 Personal history of transient ischemic attack (TIA), and cerebral infarction without residual deficits; I25.10 Atherosclerotic heart disease of native coronary artery without angina pectoris; F03.90 Unspecified dementia, unspecified severity, without behavioral disturbance, psychotic disturbance, mood disturbance, and anxiety; E11.9 Type 2 diabetes mellitus without complications; I10 Essential (primary) hypertension; Z87.440 Personal history of urinary (tract) infections; Z87.891 Personal history of nicotine dependence
CPT/HCPCS: 70450; 72125; 73080; 81001; 90471; 90715; 99285

== ENCOUNTER 2024-05-02 05:57 | Emergency (ER) | payer MEDICARE, SELFPAY ==
[2024-05-02] VITALS (22 sets, daily range): BP systolic 113–190; BP diastolic 59–99; PULSE 61–95; TEMP 36.9; O2SAT 93–98
--- NOTE | 2024-05-02 06:14 | XR_ITS ---
The [place] [id number] Patient Name: PRIYA MOON MRN: [id number] date: 1935 Sex: F Assigned Patient Location: ER Current Patient Location: ER Accession/Order Number: [id number] Exam Date: 05/02/2024 06:50 Report Date: 05/02/2024 07:18 At the request of: RAFAL FRANCIS Procedure: XR hip LT min 2V EXAM: XR hip LT min 2V HISTORY: Fall. COMPARISON: None. TECHNIQUE: Portable AP and crosstable lateral views of the left hip performed. FINDINGS: Acute comminuted mildly displaced intertrochanteric fracture of the left femur. There is soft tissue swelling along the lateral aspect of the left hip. The bony structures are osteopenic. The left femoral head maintains a normal relationship with the left acetabulum. There are mild degenerative changes at the left hip joint. There are pelvic phleboliths. XR/XR hip LT min 2V IMPRESSION: Acute comminuted mildly displaced intertrochanteric fracture of the left femur. There is soft tissue swelling along the lateral aspect of the left hip. There are mild degenerative changes at the left hip joint. The bony structures are osteopenic. Electronically authenticated by: NESSA SCHAFER Date: 05/02/2024 07:18
--- NOTE | 2024-05-02 06:15 | CT_ITS ---
The [address] [address] Patient Name: PRIYA MOON MRN: [id number] date: 1935 Sex: F Assigned Patient Location: ER Current Patient Location: ER Accession/Order Number: [id number] Exam Date: 05/02/2024 06:40 Report Date: 05/02/2024 06:57 At the request of: RAFAL FRANCIS Procedure: CT head/brain wo con EXAM: CT head/brain wo con INDICATION: 88 years old; Female. Closed head trauma status post fall. TECHNIQUE: CT Head (ax/cor/sag reformats). Ionizing radiation dose reduced via iterative reconstruction/FBP blend and body size kV/mA adjustment. Comparison: Head CT dated 01/04/2024. FINDINGS: POSTOPERATIVE CHANGES: None. BRAIN PARENCHYMA: There is a localized extra-axial collection consistent with a small acute subdural hematoma on the right. This measures 1.89 mm in thickness on the axial images, image 29/series 5 and 2.36 mm in thickness on the coronal images, image 32/series 6. No associated mass effect is seen. No midline shift or herniation is noted. Patchy low-density is seen in the white matter without mass effect. VENTRICLES/EXTRA-AXIAL SPACES: Enlarged, consistent with atrophy. SINUSES/MASTOIDS: Sinuses are clear. Maxillary sinuses are not completely included in the examination. Mastoids and middle ears are clear. MSK: No displaced or depressed calvarial fracture. OTHER: No hyperdense intraluminal thrombus is seen. Vascular calcifications are present in the anterior and posterior circulation. CT/CT head/brain wo con IMPRESSION: 1. Localized subdural hematoma on the right measuring 1.89 mm in thickness on the axial images and 2.36 mm in the coronal images. No mass effect. 2. Nonspecific white matter changes. 3. Atrophy. A telephone call regarding the findings in examination was made to and acknowledged by Dr. Francis in the emergency department at 6:55 AM on 05/02/2024. Electronically authenticated by: GINA GÓMEZ Date: 05/02/2024 06:57
--- NOTE | 2024-05-02 06:15 | ECG_ITS ---
The [facility] Test Date: 2024-05-02 Pat Name: PRIYA MOON Department: Room: - Gender: Female Electrolytic De Scaler: : 1935 Requested By: LANRE STANLEY Order Number: [id number] Reading MD: MEETA PRICE Measurements Intervals [place] Rate: 73 P: 90 WI: 162 QRS: -29 QRSD: 82 T: 73 QT: 416 QTc: 442 Interpretive Statements 1100 Sinus rhythm 3434 Septal myocardial infarction, age undetermined 9150 abnormal ECG Compared to ECG 02/26/2023 11:34:46 First degree AV block no longer present Myocardial infarct finding still present Electronically Signed On 05-02-2024 23:05:40 EDT by MEETA PRICE
--- NOTE | 2024-05-02 06:16 | ED_ITS ---
HPI HPI - Extremity Injury (Lower) General Chief Complaint: Extremity Injury, Lower Stated Complaint: FALL Time Seen by Provider: 05/02/24 06:12 Mode of arrival: ambulance History of Present Illness HPI Narrative: 88-year-old female who has dementia presents from [facility] for injuries following a fall. She has dementia and cannot provide any details. She was noted to have left hip pain and a bruise on her left ear. She does not know what happened. No further history is obtainable. Related Data Home Medications ?Medication ?Instructions ?Recorded ?Confirmed clopidogrel 75 mg tablet 75 mg PO DAILY 04/09/23 05/02/24 donepezil 10 mg tablet (Aricept) 10 mg PO DAILY 04/09/23 05/02/24 levothyroxine 75 mcg capsule 75 mcg PO DAILY 04/09/23 05/02/24 sodium chloride 1,000 mg soluble 1,000 mg PO DAILY 05/02/24 05/02/24 tablet Allergies Allergy/AdvReac Type Severity Reaction Status Date / Time metformin Allergy Severe Hives Verified 05/02/24 06:13 pioglitazone Allergy Severe Hives Verified 05/02/24 06:13 Sulfa (Sulfonamide Allergy Unknown Verified 05/02/24 06:13 Antibiotics) Opioid HPI Opioid Management Most Recent Pain and Opioid Data: Last Pain Scale 10 05/02/24 06:08 Last Pain Intensity 0 02/12/23 09:40 Review of Systems ROS Narrative Not obtainable, dementia PFSH [facility] Medical History (Updated 05/02/24 @ 06:18 by Tyrone Faulkner MD) Hypothyroidism ?E03.9 - Hypothyroidism, unspecified (ICD-10) HLD (hyperlipidemia) ?E78.5 - Hyperlipidemia, unspecified (ICD-10) H/O: CVA (cerebrovascular accident) ?Z86.73 - Personal history of transient ischemic attack (TIA), and cerebral infarction without residual deficits (ICD-10) CAD (coronary artery disease) ?I25.10 - Atherosclerotic heart disease of [place] coronary artery without angina pectoris (ICD-10) Dementia ?F03.90 - Unspecified dementia, unspecified severity, without behavioral disturbance, psychotic disturbance, mood disturbance, and anxiety (ICD-10) Diabetes ?E11.9 - Type 2 diabetes mellitus without complications (ICD-10) High cholesterol ?E78.00 - Pure hypercholesterolemia, unspecified (ICD-10) Hypertension ?I10 - Essential (primary) hypertension (ICD-10) UTI (urinary tract infection) ?N39.0 - Urinary tract infection, site not specified (ICD-10) Weakness generalized ?R53.1 - Weakness (ICD-10) Falls frequently ?R29.6 - Repeated falls (ICD-10) Social History (Updated 04/10/23 @ 13:22 by Shaikh Shama MD) Within the past year, how often did you have a drink containing alcohol: never Within the past year, how often did you have six or more drinks on one occasion: never Score interpretation: A score less than 3 is consistent with normal alcohol consumption. Smoking status: Former smoker Non-prescribed substance use: denies use Gender Identity: female Exam Narrative Exam Narrative: Nurses note and vital signs reviewed and patient is not hypoxic. General: The patient appears well and in no apparent distress. Patient is resting comfortably on cart. Skin: Warm, dry, no pallor noted. There is no rash noted. Head: Normocephalic bruise present on the left pinna Eye: Normal conjunctiva, no drainage Ears, Nose, Mouth, and Throat: oral mucosa is moist. Nares patent. Cardiovascular: Regular Rate and Rhythm Respiratory: Patient is in no distress, no accessory muscle use, lungs are clear to auscultation, no wheezing, rales or rhonchi GI: Soft and nontender Musculoskeletal: Skin tear present on left forearm. Shoulders and elbows have good range of motion. Left leg is shortened and externally rotated. Neurological: She is awake and alert. She knows her name and that she is in the hospital. Psychiatric: Cooperative Constitutional Vital Signs, click to edit/add: Last Vital Signs Temp 98.4 F 05/02/24 06:00 Pulse 83 05/02/24 06:00 Resp 18 05/02/24 06:00 BP 190/99 H 05/02/24 06:00 Pulse Ox 98 05/02/24 06:00 O2 Del Method Room Air 05/02/24 06:00 Course Vital Signs Vital signs: Vital Signs Temperature 98.4 F 05/02/24 06:00 Pulse Rate 83 05/02/24 06:00 Respiratory Rate 18 05/02/24 06:00 Blood Pressure 190/99 H 05/02/24 06:00 Pulse Oximetry 98 05/02/24 06:00 Oxygen Delivery Method Room Air 05/02/24 06:00 Temperature 98.4 F 05/02/24 06:00 Pulse Rate 83 05/02/24 06:00 Respiratory Rate 18 05/02/24 06:00 Blood Pressure 190/99 H 05/02/24 06:00 Pulse Oximetry 98 05/02/24 06:00 Oxygen Delivery Method Room Air 05/02/24 06:00 MDM - Extremity Injury (Lower) MDM Narrative Medical decision making narrative: Tests are ordered and the patient is signed out to Dr. Crowe. Differential Diagnosis Differential diagnosis: Likely other (Hip fracture, contusions, skin tear) Discharge Plan Discharge Chief Complaint: Extremity Injury, Lower Clinical Impression: Fall Patient Disposition: Still a Patient Prescriptions / Home Meds: No Action levothyroxine 75 mcg capsule 75 mcg PO DAILY Rx Instructions: PER RETAIL FILL HX - LAST FILLED 04/08/23 #90 FOR A 90 DAY SUPPLY clopidogrel 75 mg tablet 75 mg PO DAILY Rx Instructions: PER RETAIL FILL HX - LAST FILLED 04/03/23 #90 FOR A 90 DAY SUPPLY donepezil [Aricept] 10 mg tablet 10 mg PO DAILY Rx Instructions: PER RETAIL FILL HX - PT FILLED DONEPEZIL 10MG PO QHS - 03/12/23 AND 04/05/23 #30 TABS FOR 30 DAYS EACH FILL sodium chloride 1,000 mg tablet,soluble 1,000 mg PO DAILY Print Language: Kosovan Referrals: Kerline Merrill MD [Primary Care Provider] - 1 week
[2024-05-02 06:29] LABS: Basophils Absolute Auto 0.1 10^3/uL (0.0-0.1); Basophils Percent Auto 0.8 % (0.2-2.0); Eosinophils Absolute Auto 0.3 10^3/uL (0.0-0.7); Hematocrit 41.6 % (36.0-48.0); Hemoglobin 13.4 g/dL (12.0-16.0); Immature Granulocytes Abs Auto 0.09 10^3/uL (0.00-0.03); Immature Granulocytes Pct Auto 1.1 % (0.0-0.5); Lymphocytes Absolute Auto 2.3 10^3/uL (1.2-3.8); Lymphocytes Percent Auto 27.6 % (20.5-60.0); Mean Corpuscular HGB Conc 32.2 g/dL (29.9-35.2); Mean Corpuscular Hemoglobin 32.1 pg (26.7-34.0); Mean Corpuscular Volume 99.5 fL (81.0-99.0); Mean Platelet Volume 8.7 fL (9.5-13.5); Monocytes Absolute Auto 0.8 10^3/uL (0.3-0.8); Monocytes Percent Auto 9.5 % (1.7-12.0); Neutrophils Absolute Auto 4.9 10^3/uL (1.4-6.5); Platelet Count 550 10^3/uL (150-450); Red Blood Count 4.18 10^6/uL (4.20-5.40); Red Cell Distribution Width 13.5 % (11.0-15.0); White Blood Count 8.4 10^3/uL (4.0-11.0)
[2024-05-02 06:37] LABS: Anion Gap 10.9; BUN Creatinine Ratio 15.6; Calcium 8.9 mg/dL (8.5-10.1); Carbon Dioxide 29.2 mmol/L (21.0-32.0); Chloride 101 mmol/L (98-107); Estimated GFR (African America >60 (>=60); Estimated GFR (Non-African Ame 59 (>=60); Glucose 145 mg/dL (74-106); Potassium 4.1 mmol/L (3.5-5.1); Sodium 137 mmol/L (136-145)
[2024-05-02] MEDS: MORPHINE SULFATE 2 MG/ML SYRINGE IV (06:40)
[2024-05-02] MEDS: HYDRALAZINE HCL 20 MG/ML VIAL 2.5 MG IVP (07:22)
[2024-05-02] MEDS: ONDANSETRON PF 4 MG/2 ML VIAL IV (08:02)
== END 2024-05-02 09:03 | disposition short-term general hospital (02) ==
PROVIDERS: Emergency Provider Emergency Medicine; PCP Family Medicine
DX: S72.142A Displaced intertrochanteric fracture of left femur, initial encounter for closed fracture (principal); S06.5X0A Traumatic subdural hemorrhage without loss of consciousness, initial encounter; W19.XXXA Unspecified fall, initial encounter; F03.90 Unspecified dementia, unspecified severity, without behavioral disturbance, psychotic disturbance, mood disturbance, and anxiety; R11.0 Nausea; Z79.02 Long term (current) use of antithrombotics/antiplatelets; Z87.891 Personal history of nicotine dependence
CPT/HCPCS: 36415; 70450; 73502; 80048; 85025; 93005; 96374; 96375; 99285; J0360; J2270; J2405

== ENCOUNTER 2024-05-17 12:51 | Outpatient (OUT) | payer MEDICARE, SELFPAY ==
--- NOTE | 2024-05-17 13:07 | CT_ITS ---
The [address] [address] Patient Name: PRIYA MOON MRN: [id number] date: 1935 Sex: F Assigned Patient Location: CT Current Patient Location: ER Accession/Order Number: [id number] Exam Date: 05/17/2024 12:57 Report Date: 05/17/2024 16:45 At the request of: NON-STAFF PHYSICIAN Procedure: CT head/brain wo con EXAM: CT head/brain wo con HISTORY: Subdural Hematoma COMPARISON: 05/02/2024 TECHNIQUE: FINDINGS: Hatch and white matter degradation is preserved. There are moderate periventricular and subcortical white matter hypodensities likely representing chronic microvascular ischemic changes. There is no acute intracranial hemorrhage, extra axial fluid collection, midline shift, or mass effect. Previously identified subdural hematoma has resolved. There is no evidence to suggest acute infarction. Moderate prominence of the cerebral sulci and ventricles. No hydrocephalus. There are atherosclerotic calcifications within the carotid siphons and intracranial vertebral arteries. The partially visualized paranasal sinuses and mastoid air cells are well pneumatized and clear. There are no suspicious osseous lytic or sclerotic lesions. There are no acute fractures. The extracranial soft tissues are unremarkable. CT/CT head/brain wo con IMPRESSION: No acute intracranial process. Previously identified subdural hematoma has resolved. Electronically authenticated by: KATHLEEN BONILLA Date: 05/17/2024 16:45
== END 2024-05-17 12:52 | disposition home or self-care (01) ==
LOC: CT 12:51
PROVIDERS: PCP Family Medicine
DX: S06.5XAA Traumatic subdural hemorrhage with loss of consciousness status unknown, initial encounter (principal)
CPT/HCPCS: 70450

== ENCOUNTER 2024-05-17 15:38 | Emergency (ER) | payer MEDICARE, SELFPAY ==
[2024-05-17 15:40] VITALS: BP 166/82; PULSE 85; TEMP 36.5; O2SAT 96
--- NOTE | 2024-05-17 15:56 | PC.NURSE ---
no shortening or rotation observed to left leg, clean dry dressings to left hip as pt is post left hip surgery
[2024-05-17 16:08] LABS: Basophils Absolute Auto 0.1 10^3/uL (0.0-0.1); Basophils Percent Auto 0.9 % (0.2-2.0); Eosinophils Absolute Auto 0.1 10^3/uL (0.0-0.7); Eosinophils Percent Auto 1.5 % (0.9-7.0); Hematocrit 28.8 % (36.0-48.0); Hemoglobin 9.3 g/dL (12.0-16.0); Immature Granulocytes Pct Auto 1.2 % (0.0-0.5); Lymphocytes Absolute Auto 1.2 10^3/uL (1.2-3.8); Lymphocytes Percent Auto 14.4 % (20.5-60.0); Mean Corpuscular HGB Conc 32.3 g/dL (29.9-35.2); Mean Corpuscular Hemoglobin 32.4 pg (26.7-34.0); Mean Corpuscular Volume 100.3 fL (81.0-99.0); Mean Platelet Volume 8.6 fL (9.5-13.5); Monocytes Absolute Auto 0.7 10^3/uL (0.3-0.8); Monocytes Percent Auto 7.6 % (1.7-12.0); Neutrophils Absolute Auto 6.3 10^3/uL (1.4-6.5); Neutrophils Percent Auto 74.4 % (43.0-75.0); Platelet Count 753 10^3/uL (150-450); Red Blood Count 2.87 10^6/uL (4.20-5.40); Red Cell Distribution Width 14.2 % (11.0-15.0); White Blood Count 8.5 10^3/uL (4.0-11.0)
--- NOTE | 2024-05-17 16:11 | CT_ITS ---
The [address] [address] Patient Name: PRIYA MOON MRN: [id number] date: 1935 Sex: F Assigned Patient Location: ER Current Patient Location: Accession/Order Number: [id number] Exam Date: 05/17/2024 16:00 Report Date: 05/17/2024 16:36 At the request of: ROSENDO NEWMAN Procedure: CT head/brain wo con EXAM: CT head/brain wo con, CT cervical spine wo con HISTORY: fall COMPARISON: CT head 05/02/2024, CT cervical spine 01/04/2024 TECHNIQUE: CT of the head and CT of the cervical spine without intravenous contrast. Dose reduction techniques were achieved by using automated exposure control and/or adjustment of mA and/or kV according to patient size and/or use of iterative reconstruction technique. . FINDINGS: Head Hatch-white matter differentiation is preserved. There are moderate periventricular and subcortical white matter hypodensities likely representing chronic microvascular ischemic changes. There is no acute intracranial hemorrhage, extra axial fluid collection, midline shift, or mass effect. There is no evidence to suggest acute infarction. Moderate prominence of the cerebral sulci and ventricles. No hydrocephalus. There are atherosclerotic calcifications within the carotid siphons and intracranial vertebral arteries. The partially visualized paranasal sinuses and mastoid air cells are well pneumatized and clear. There are no suspicious osseous lytic or sclerotic lesions. There are no acute fractures. The extracranial soft tissues are unremarkable. Cervical spine No fracture or dislocation is shown. Multilevel facet and uncinate spondylosis with moderate to severe neural foraminal narrowing and moderate spinal stenosis, stable compared to the prior study. The prevertebral soft tissue space appears normal. Visualized intracranial contents appear normal. Visualized neck shows no adenopathy. Visualized lung apices are clear. CT/CT head/brain wo con IMPRESSION: No acute intracranial process. No acute osseous abnormality of the cervical spine. Electronically authenticated by: KATHLEEN BONILLA Date: 05/17/2024 16:36
--- NOTE | 2024-05-17 16:11 | CT_ITS ---
The [address] [address] Patient Name: PRIYA MOON MRN: [id number] date: 1935 Sex: F Assigned Patient Location: ER Current Patient Location: Accession/Order Number: [id number] Exam Date: 05/17/2024 16:00 Report Date: 05/17/2024 16:36 At the request of: ROSENDO NEWMAN Procedure: CT cervical spine wo con EXAM: CT head/brain wo con, CT cervical spine wo con HISTORY: fall COMPARISON: CT head 05/02/2024, CT cervical spine 01/04/2024 TECHNIQUE: CT of the head and CT of the cervical spine without intravenous contrast. Dose reduction techniques were achieved by using automated exposure control and/or adjustment of mA and/or kV according to patient size and/or use of iterative reconstruction technique. . FINDINGS: Head [place]-white matter differentiation is preserved. There are moderate periventricular and subcortical white matter hypodensities likely representing chronic microvascular ischemic changes. There is no acute intracranial hemorrhage, extra axial fluid collection, midline shift, or mass effect. There is no evidence to suggest acute infarction. Moderate prominence of the cerebral sulci and ventricles. No hydrocephalus. There are atherosclerotic calcifications within the carotid siphons and intracranial vertebral arteries. The partially visualized paranasal sinuses and mastoid air cells are well pneumatized and clear. There are no suspicious osseous lytic or sclerotic lesions. There are no acute fractures. The extracranial soft tissues are unremarkable. Cervical spine No fracture or dislocation is shown. Multilevel facet and uncinate spondylosis with moderate to severe neural foraminal narrowing and moderate spinal stenosis, stable compared to the prior study. The prevertebral soft tissue space appears normal. Visualized intracranial contents appear normal. Visualized neck shows no adenopathy. Visualized lung apices are clear. CT/CT cervical spine wo con IMPRESSION: No acute intracranial process. No acute osseous abnormality of the cervical spine. Electronically authenticated by: KATHLEEN BONILLA Date: 05/17/2024 16:36
--- NOTE | 2024-05-17 16:11 | CT_ITS ---
The [address] [address] Patient Name: PRIYA MOON MRN: [id number] date: 1935 Sex: F Assigned Patient Location: ER Current Patient Location: Accession/Order Number: [id number] Exam Date: 05/17/2024 16:00 Report Date: 05/17/2024 16:44 At the request of: ROSENDO NEWMAN Procedure: CT pelvis wo con EXAM: CT pelvis wo con HISTORY: fall COMPARISON: 04/03/2023 TECHNIQUE: CT of pelvis without intravenous contrast. Dose reduction techniques were achieved by using automated exposure control and/or adjustment of mA and/or kV according to patient size and/or use of iterative reconstruction technique. FINDINGS: TUBES AND IMPLANTS: Intramedullary demian and screw fixation hardware of the left femur. ABDOMINAL WALL AND SOFT TISSUES: A left gluteal subcutaneous hematoma measuring 3.2 by 3.6 centimeters and left lateral thigh subcutaneous hematoma measuring up to 3.9 centimeters with overlying skin jayme. Surrounding soft tissue edema. BONES: Again seen is a subacute comminuted fracture of the intertrochanteric left femoral neck . No additional fractures are identified. No suspicious lesions. Multilevel degenerative changes of the spine. Osteopenia. ARTERIES: Incompletely evaluated . Severe aortoiliac calcification VEINS: Incompletely evaluated LYMPH NODES: Unremarkable. PERITONEUM/ RETROPERITONEUM: Unremarkable. BOWEL: Unremarkable. APPENDIX: Not identified. REPRODUCTIVE ORGANS: Unremarkable URINARY BLADDER: Unremarkable. CT/CT pelvis wo con IMPRESSION: Subacute comminuted fracture of the intertrochanteric left femoral neck, with interval hardware. No new fractures are identified. Osteopenia. Left gluteal and left lateral thigh subcutaneous hematomas. Electronically authenticated by: KATHLEEN BONILLA Date: 05/17/2024 16:44
[2024-05-17 16:31] LABS: Alanine Aminotransferase 17 U/L (14-59); Albumin Globulin Ratio 0.8; Albumin Level 2.4 g/dL (3.4-5.0); Alkaline Phosphatase 140 U/L (46-116); Anion Gap 8.5; Aspartate Amino Transferase 17 U/L (15-37); BUN Creatinine Ratio 11.8; Bilirubin Total 0.6 mg/dL (0.2-1.0); Calcium 7.7 mg/dL (8.5-10.1); Carbon Dioxide 28.1 mmol/L (21.0-32.0); Chloride 102 mmol/L (98-107); Estimated GFR (African America >60 (>=60); Estimated GFR (Non-African Ame >60 (>=60); Globulin 3.1 g/dL; Glucose 121 mg/dL (74-106); Potassium 3.6 mmol/L (3.5-5.1); Sodium 135 mmol/L (136-145); Total Protein 5.5 g/dL (6.4-8.2)
--- NOTE | 2024-05-17 17:17 | ED.GENADUL1 ---
HPI HPI - General Adult General Chief complaint: Extremity Injury, Lower Stated complaint: fall Time Seen by Provider: 05/17/24 15:41 Mode of arrival: ambulance History of Present Illness HPI narrative: The patient is coming to us after she fell down from her bed in the assisted facility that she was admitted to after she recently had a left hip fracture and surgery, the patient was not able to get up and get into the bed because of the pain in the left hip and she was sent for evaluation There was no loss of consciousness or head trauma at any time but the patient had a history of previous intracranial bleeding after trauma and that why she was sent for evaluation The patient have a history of dementia in the ER the patient had no complaint except for the left hip pain Related Data Home Medications ?Medication ?Instructions ?Recorded ?Confirmed clopidogrel 75 mg tablet 75 mg PO DAILY 04/09/23 05/02/24 donepezil 10 mg tablet (Aricept) 10 mg PO DAILY 04/09/23 05/02/24 levothyroxine 75 mcg capsule 75 mcg PO DAILY 04/09/23 05/02/24 sodium chloride 1,000 mg soluble 1,000 mg PO DAILY 05/02/24 05/02/24 tablet Allergies Allergy/AdvReac Type Severity Reaction Status Date / Time metformin Allergy Severe Hives Verified 05/02/24 06:13 pioglitazone Allergy Severe Hives Verified 05/02/24 06:13 Sulfa (Sulfonamide Allergy Unknown Verified 05/02/24 06:13 Antibiotics) Opioid HPI Opioid Management Most Recent Opioid Data: Last Pain Scale 10 05/02/24 06:08 Last Pain Intensity 0 02/12/23 09:40 Review of Systems ROS Status of ROS 10 or more systems reviewed and unremarkable except as noted in history and below PFSH PFS Medical History (Updated 05/17/24 @ 17:20 by Lorraine Crowe MD) Hypothyroidism ?E03.9 - Hypothyroidism, unspecified (ICD-10) HLD (hyperlipidemia) ?E78.5 - Hyperlipidemia, unspecified (ICD-10) H/O: CVA (cerebrovascular accident) ?Z86.73 - Personal history of transient ischemic attack (TIA), and cerebral infarction without residual deficits (ICD-10) CAD (coronary artery disease) ?I25.10 - Atherosclerotic heart disease of [place] coronary artery without angina pectoris (ICD-10) Dementia ?F03.90 - Unspecified dementia, unspecified severity, without behavioral disturbance, psychotic disturbance, mood disturbance, and anxiety (ICD-10) Diabetes ?E11.9 - Type 2 diabetes mellitus without complications (ICD-10) High cholesterol ?E78.00 - Pure hypercholesterolemia, unspecified (ICD-10) Hypertension ?I10 - Essential (primary) hypertension (ICD-10) UTI (urinary tract infection) ?N39.0 - Urinary tract infection, site not specified (ICD-10) Weakness generalized ?R53.1 - Weakness (ICD-10) Falls frequently ?R29.6 - Repeated falls (ICD-10) Social History (Updated 04/10/23 @ 13:22 by Shaikh Shama MD) Within the past year, how often did you have a drink containing alcohol: never Within the past year, how often did you have six or more drinks on one occasion: never Score interpretation: A score less than 3 is consistent with normal alcohol consumption. Smoking status: Former smoker Non-prescribed substance use: denies use Gender Identity: female Exam Narrative Exam Narrative: Nurses notes and vital signs reviewed and patient is not hypoxic. General: Well-appearing and in no apparent distress. Skin: Warm, dry, no pallor noted. No rash. Head: Normocephalic, atraumatic. Neck: Supple, non-tender. Eye: Pupils are equal, round and EOMI. No scleral icterus. Ears, Nose, Mouth, and Throat: TM are clear, no nasal mucosal hypertrophy. Oral mucosa is moist, no posterior oropharynx erythema, uvula is mid-line Cardiovascular: Regular Rate and Rhythm without murmur, gallop or rub. Respiratory: No accessory muscle use or respiratory distress. Lungs are clear to auscultation, no wheezing, rales or rhonchi Chest Wall: no tenderness Back: No midline thoracic or lumbar vertebral tenderness. No CVA tenderness Musculoskeletal: normal ROM, no calf or popliteal tenderness, no lower extremity edema/swelling, dressing on the posterior aspect of the left hip no acute finding and there is a healing ecchymosis GI: Abdomen is soft, non-distended. Normal bowel sounds. No masses appreciated. No tenderness to palpation. No rebound, guarding, or rigidity noted. Neurological: A&O x2. No cranial nerve dysfunction observed. Constitutional Vital Signs, click to edit/add: Last Vital Signs Temp 97.7 F 05/17/24 15:40 Pulse 85 05/17/24 15:40 Resp 16 05/17/24 15:40 BP 166/82 H 05/17/24 15:40 Pulse Ox 96 05/17/24 15:40 O2 Del Method Room Air 05/17/24 15:40 Course Vital Signs Vital signs: Vital Signs Temperature 97.7 F 05/17/24 15:40 Pulse Rate 85 05/17/24 15:40 Respiratory Rate 16 05/17/24 15:40 Blood Pressure 166/82 H 05/17/24 15:40 Pulse Oximetry 96 05/17/24 15:40 Oxygen Delivery Method Room Air 05/17/24 15:40 Temperature 97.7 F 05/17/24 15:40 Pulse Rate 85 05/17/24 15:40 Respiratory Rate 16 05/17/24 15:40 Blood Pressure 166/82 H 05/17/24 15:40 Pulse Oximetry 96 05/17/24 15:40 Oxygen Delivery Method Room Air 05/17/24 15:40 Medical Decision Making [facility] Narrative Medical decision making narrative: The patient CBC and chemistry showed no acute pathology except for the drop in the hemoglobin that is mostly secondary to the recent surgery The patient was not tachycardic at any time and was not hypotensive CT cervical as well as CT head showed no acute pathology CT pelvis showed no acute pathology as well except for the recent fracture of the hip that was treated surgically Patient will be sent back to the assisted facility for further evaluation and monitoring The patient is to follow up with primary care physician in next 2-3 days or to return to the emergency department should any of the signs or symptoms worsen or new symptoms develop. The patient agrees with the following Diagnosis and Treatment plan and the patient will be discharged home. Lab Data Labs: Lab Results 05/17/24 Range/Units 15:52 WBC 8.5 (4.0-11.0) 10^3/uL RBC 2.87 L (4.20-5.40) 10^6/uL Hgb 9.3 L (12.0-16.0) g/dL Hct 28.8 L (36.0-48.0) % MCV 100.3 H (81.0-99.0) fL MCH 32.4 (26.7-34.0) pg MCHC 32.3 (29.9-35.2) g/dL RDW 14.2 (11.0-15.0) % Plt Count 753 H (150-450) 10^3/uL MPV 8.6 L (9.5-13.5) fL Neut % (Auto) 74.4 (43.0-75.0) % Lymph % (Auto) 14.4 L (20.5-60.0) % [place] % (Auto) 7.6 (1.7-12.0) % Eos % (Auto) 1.5 (0.9-7.0) % Baso % (Auto) 0.9 (0.2-2.0) % Neut # (Auto) 6.3 (1.4-6.5) 10^3/uL Lymph # (Auto) 1.2 (1.2-3.8) 10^3/uL [place] # (Auto) 0.7 (0.3-0.8) 10^3/uL Eos # (Auto) 0.1 (0.0-0.7) 10^3/uL Baso # (Auto) 0.1 (0.0-0.1) 10^3/uL Abs Immat Gran (auto) 0.10 H (0.00-0.03) 10^3/uL Imm/Tot Granulo (auto) 1.2 H (0.0-0.5) % Sodium 135 L (136-145) mmol/L Potassium 3.6 (3.5-5.1) mmol/L Chloride 102 (98-107) mmol/L Carbon Dioxide 28.1 (21.0-32.0) mmol/L Anion Gap 8.5 BUN 10.0 (7.0-18.0) mg/dL Creatinine 0.85 (0.55-1.02) mg/dL Est GFR ( Amer) >60 (>=60) Est GFR (Non-Af Amer) >60 (>=60) BUN/Creatinine Ratio 11.8 Glucose 121 H (74-106) mg/dL Calcium 7.7 L (8.5-10.1) mg/dL Total Bilirubin 0.6 (0.2-1.0) mg/dL AST 17 (15-37) U/L ALT 17 (14-59) U/L Alkaline Phosphatase 140 H (46-116) U/L Total Protein 5.5 L (6.4-8.2) g/dL Albumin 2.4 L (3.4-5.0) g/dL Globulin 3.1 g/dL Albumin/Globulin Ratio 0.8 Discharge Plan Discharge Stand Alone Forms: Work/School Release, Portal Instructions Chief Complaint: Extremity Injury, Lower Clinical Impression: Fall Qualifiers: Encounter type: initial encounter Qualified Code(s): W19.XXXA - Unspecified fall, initial encounter Patient Disposition: Home, Self-Care Condition: Good Prescriptions / Home Meds: No Action levothyroxine 75 mcg capsule 75 mcg PO DAILY Rx Instructions: PER RETAIL FILL HX - LAST FILLED 04/08/23 #90 FOR A 90 DAY SUPPLY clopidogrel 75 mg tablet 75 mg PO DAILY Rx Instructions: PER RETAIL FILL HX - LAST FILLED 04/03/23 #90 FOR A 90 DAY SUPPLY donepezil [Aricept] 10 mg tablet 10 mg PO DAILY Rx Instructions: PER RETAIL FILL HX - PT FILLED DONEPEZIL 10MG PO QHS - 03/12/23 AND 04/05/23 #30 TABS FOR 30 DAYS EACH FILL sodium chloride 1,000 mg tablet,soluble 1,000 mg PO DAILY Print Language: Indian Instructions: Fall Prevention (ED) Referrals: Kerline Merrill MD [Primary Care Provider] - 1 week
== END 2024-05-17 17:46 | disposition home or self-care (01) ==
PROVIDERS: Emergency Provider Emergency Medicine; PCP Family Medicine
DX: Z04.3 Encounter for examination and observation following other accident (principal); S72.002D Fracture of unspecified part of neck of left femur, subsequent encounter for closed fracture with routine healing; X58.XXXD Exposure to other specified factors, subsequent encounter; S06.5XAA Traumatic subdural hemorrhage with loss of consciousness status unknown, initial encounter; Z87.891 Personal history of nicotine dependence; F03.90 Unspecified dementia, unspecified severity, without behavioral disturbance, psychotic disturbance, mood disturbance, and anxiety
CPT/HCPCS: 36415; 70450; 72125; 72192; 80053; 85025; 99284